=== PATIENT | female | born 1955 | race Caucasian/White ===

== ENCOUNTER → 2017-02-01 | Outpatient (CLI) | payer OTHER | LOC: FIMAGING 15:17 | PROVIDERS: ATTEND Physician Assistant Medical | DX: M50.30 Other cervical disc degeneration, unspecified cervical region (principal); M50.20 Other cervical disc displacement, unspecified cervical region; M50.822 Other cervical disc disorders at C5-C6 level; M50.823 Other cervical disc disorders at C6-C7 level; M41.86 Other forms of scoliosis, lumbar region; M51.36 Other intervertebral disc degeneration, lumbar region; M41.84 Other forms of scoliosis, thoracic region; M48.06 Spinal stenosis, lumbar region; M99.73 Connective tissue and disc stenosis of intervertebral foramina of lumbar region; M12.88 Other specific arthropathies, not elsewhere classified, other specified site ==

== ENCOUNTER → 2017-02-11 | Outpatient (CLI) | payer OTHER | LOC: FIMAGING 12:07 | PROVIDERS: ATTEND Physician Assistant Medical | DX: M54.5 Low back pain (principal); M41.86 Other forms of scoliosis, lumbar region; M41.84 Other forms of scoliosis, thoracic region ==

== ENCOUNTER → 2017-02-20 | Outpatient (CLI) | payer OTHER | LOC: FIMAGING 13:44 | PROVIDERS: ATTEND Physician Assistant | DX: Z13.820 Encounter for screening for osteoporosis (principal); M41.30 Thoracogenic scoliosis, site unspecified; Z79.890 Hormone replacement therapy | CPT/HCPCS: G0202 ==

== ENCOUNTER 2017-09-14 11:23 | Inpatient (IN) | payer OTHER ==
[2017-09-14] MEDS ORDERED: BISACODYL 5 MG EC TAB PO PRN (18:38)
[2017-09-14] MEDS ORDERED: CEPACOL LOZENGE PO PRN (18:38)
[2017-09-14] MEDS ORDERED: NON-FORMULARY NEW DRUG (Ondansetron Hcl [Zofran] 4 MG) PO PRN (18:38)
[2017-09-14] MEDS ORDERED: POLYETHYLENE GLYCOL 3350 17 GM PKT PO PRN (18:38)
[2017-09-14] MEDS ORDERED: SENNOSIDES/DOCUSATE SODIUM TAB PO PRN (18:38)
[2017-09-14] MEDS ORDERED: HYDROmorphONE/DILAUDID 2 MG TAB PO PRN (18:38)
[2017-09-14] MEDS ORDERED: NON-FORMULARY NEW DRUG (Zolpidem Tartrate [Ambien] 10 MG) PO PRN (18:38)
[2017-09-14] MEDS ORDERED: MAGNESIUM HYDROXIDE PO PRN (18:38)
[2017-09-14] MEDS ORDERED: oxyCODONE IR 5 MG TAB PO PRN (18:38)
[2017-09-14] MEDS ORDERED: BISACODYL 10 MG SUPP PR PRN (18:38)
[2017-09-14] MEDS ORDERED: fentaNYL 25 MCG PATCH TD SCH (18:45)
[2017-09-14] MEDS ORDERED: TRIAMCINOLONE 0.1% 5GM CREAM DT PRN (19:10)
--- NOTE | 2017-09-14 19:12 | PDOREHIP ---
Admission [facility] - Admission - 3 Day Assessment Period Admission Date/Day 1: 09/14/17 Day 2: 09/15/17 Day 3: 09/16/17 - Active Diagnoses Comorbidities and Co-existing Conditions at Admission: 09787. None of the Above - Skin Conditions Unhealed Pressure Ulcer (1 or more/Stage 1 or >)-Admission: 0. No
[2017-09-14] MEDS ORDERED: ONDANSETRON DISINTEGRATING 4 MG TAB PO PRN (19:16)
[2017-09-14] MEDS ORDERED: MAGNESIUM HYDROXIDE 30 ML UDCUP PO PRN (19:17)
[2017-09-14] MEDS: SIMETHICONE 80 MG TAB CHEW PO PRN (20:08)
--- NOTE | 2017-09-14 20:12 | GHP ---
[f rep st] HISTORY AND PHYSICAL POST ADMISSION PHYSICIAN EVALUATION AND REHABILITATION TREATMENT PLAN DATE OF ADMISSION: 09/14/2017 DATE OF EVALUATION: 09/14/2017 TIME OF EVALUATION: 1755 REFERRING FACILITY: [facility]. REFERRING PHYSICIAN: Dinesh Garcia MD IMPAIRMENT GROUP: [id number] DATE OF ONSET: 09/06/2017 CONSULTING PHYSICIANS: She was also managed by the Hospitalist Service. REHABILITATION DIAGNOSIS: Debility, status post extensive thoracic and spinal surgery to correct scoliosis. ETIOLOGIC DIAGNOSIS: Other nontraumatic spinal cord dysfunction. DATE OF SURGERY: 09/06/2017 HISTORY OF PRESENT ILLNESS: This patient had severe scoliosis with chronic pain. She had surgery on 09/06/2017 to correct the scoliosis and relieve the pain. She had an L1-5 and T10-12 XLIF interbody spinal fusion with a right flank approach. She came through the surgery well and no longer has the left lower back pain that had been so bothersome to her prior to the surgery. She does have pain at the surgical site over her spine. She had some issues with pain control and understands that weaning off opiates will be a long-term issue. She otherwise is without any acute complaints at present. STUDIES AND LABS IN THE HOSPITAL FROM THE DAY AFTER SURGERY: Basic metabolic profile was within normal limits but for a reduced BUN at 6 and a slightly low calcium at 8.2. A CBC revealed a normal white count. She had anemia with a hemoglobin of 9.9 and hematocrit of 30.4. She had an elevated RDW. Platelet count was normal. I do not have any imaging that was done after her surgery. There was a chest x-ray done that showed a widened mediastinum on the day of hospital admission. PRECAUTIONS: She is a fall risk. She has orthopedic precautions for the lumbar and thoracic spine. ACTIVE COMORBIDITIES: She has the tier 3 comorbidity of morbid obesity. She otherwise has no active tier 1, tier 2 or tier 3 comorbidities. PAST MEDICAL HISTORY: 1. Chronic pain syndrome. 2. Thoracic scoliosis. 3. Anxiety. 4. Depression. 5. Squamous cell carcinoma on the back. PAST SURGICAL HISTORY: She has had bladder suspensions in 2002 and 2010, a total abdominal hysterectomy in 1999, and a face lift in 2014. PRE-HOSPITAL MEDICATIONS: 1. Fentanyl transdermal 25 mcg/hour q.72 hours. 2. Oxycodone 10 mg p.o. q.4 hours p.r.n. 3. Trazodone 150 mg p.o. q.h.s. 4. Duloxetine 60 mg p.o. q.h.s. 5. Spironolactone 100 mg p.o. daily, which she has stated was for her complexion. 6. Ranitidine 150 mg p.o. b.i.d. 7. Celecoxib 200 mg p.o. b.i.d. 8. Lidocaine patch topical daily. 9. Zolpidem 10 mg p.o. q.h.s. p.r.n. insomnia. 10. Alprazolam 0.5 mg p.o. q.8 hours p.r.n. anxiety. 11. Cyclobenzaprine 10 mg p.o. b.i.d. p.r.n. muscle spasms. ADMISSION MEDICATIONS: I do not have a list at present. ALLERGIES: Listed to cephalexin, doxycycline (which causes vomiting) and morphine. SOCIAL HISTORY: She is . She lives with her . She is a nonsmoker. She uses occasional alcohol. FAMILY HISTORY: Her father had multiple sclerosis and prostate cancer. Her mother is alive and well at 86 years old. REVIEW OF SYSTEMS: She reports approximately 30 pounds weight gain during her hospitalization, which she thinks may be fluid overload. She has back pain and reports that she is due for a change of the fentanyl patch. She no longer has the left lower back pain. She feels that her abdomen is quite distended. She does not have constipation nor does she have diarrhea, nausea or vomiting. She denies dysuria or urinary frequency. She denies chest pain or palpitations. She denies cough or dyspnea though she has noted that she has a low oxygen saturation when she is first awakened in the morning. She does not snore. She denies joint pain or swelling. She denies skin rash or skin breakdown. Her reports that the intention of the surgeon was to leave faisal in place for 3-4 weeks. She is in good spirits. Otherwise, a 10-point review of systems is negative. PHYSICAL EXAMINATION: VITAL SIGNS: Blood pressure is 125/91, heart rate is 94 , respiratory rate is 16, oxygen saturation is 94% on room air, temperature is 36.4 degrees centigrade. Her weight is 99.4 kg for a body mass index of 37.6. GENERAL: This is an obese woman in bed, wearing pajamas, cooperative and in no acute distress. HEENT: Extraocular movements are intact. Pupils are equal, round, and reactive to light. Mucous membranes are moist. Dentition is in good condition. She has an uncrowded airway, Mallampati class II. NECK: Supple. HEART: There is a regular rate and rhythm with no murmurs, rubs, or gallops. LUNGS: There are a few bibasilar rales. There are no rhonchi or wheezes. There is normal air movement. ABDOMEN: Soft. Mildly tender diffusely. Distended with hypoactive bowel sounds. There is no hepatosplenomegaly. EXTREMITIES: There is no cyanosis or clubbing. There is 2 to 3+ edema bilaterally to the lower extremities. Radial pulses are 2+ bilaterally. Dorsalis pedis pulses are trace bilaterally. NEUROLOGIC: She is alert and oriented x3. Cranial nerves 2-12 are grossly intact. There is no focal weakness. Sensation is intact to light touch. SKIN: Her surgical incisions are covered with bandages, which were just changed today and were not examined further. There are no decubitus ulcers. CURRENT LEVEL OF FUNCTION: Per the preadmission screen: Regarding diet, feeding and swallowing, she was on a regular diet and required set up. Grooming required set up. For bathing, she needed assistance. For dressing the upper extremities, she needed minimal assistance. For the lower extremities , she needed maximal assistance and she needed maximal assistance to don the back brace. For toileting, she needed assistance. For bed mobility, she was able to do a log-roll with moderate assistance of 2. For transfers, she did sit to stand with minimal assist using her front-wheeled walker. Her endurance was poor. She ambulated 50 feet with contact guard assist. Communication and cognition were noted to be normal. IMPRESSION: This is a 62-year-old woman who had a history of chronic pain due to scoliosis and has had definitive surgery with a T10-12 XLIF and L1-L5 fusion. She has come through the surgery well and has had relief of the pain due to the scoliosis. She continues to have pain at the surgical site. She has a long-term history of opiate dependence for her chronic pain syndrome and will need a gradual opiate taper once her postsurgical pain heals. She has edema which is likely due to fluid overload; though there was a widened mediastinum seen on chest x-ray she reports normal aortic ultrasound and a normal heart scan done per her primary care physician, Dr. Castillo. Her goal is to complete a rehabilitation stay and then go home with her , home health care and any other needs as indicated during her rehabilitation stay. For a safe discharge, it is expected that she will achieve moderate independence with mobility, activities of daily living, medication management and pain management. She will have discharge planning to return home with therapies and any other necessary services or durable medical equipment. She will have therapy with physical therapy and occupational therapy for 90 minutes per day for each discipline on 5-7 days of the week. Her expected duration of stay is 10-12 days. It is anticipated that upon discharge, she will continue to benefit from home health services including occupational therapy. PLAN: 1. Debility, status post extensive lumbar surgery. She had an L1-L5 and T10- 12 XLIF interbody spinal fusion with a right flank approach. PT and OT to optimize mobility and activities of daily living toward home at the modified independent level. 2. Pain management. Continue fentanyl patch, oxycodone and pregabalin as ordered. Will simplify pain regimen and not continue oxycodone/acetaminophen, ydrocodone/acetaminophen, or hydromorphone. Medications will be adjusted to achieve adequate pain control for sleep and participation in therapies. It is hoped that as she heals from the surgery, opiates can be tapered and this will be begun if possible during her rehabilitation stay. 3. Lower extremity edema and possible fluid overload. Will resume home dose of spinal act on at 100 mg q.day. Will get daily weights. Will also check a BMP regarding renal function and electrolytes as well as a BNP to rule out any heart failure with laboratory studies in the morning. 4. Postoperative anemia. We will check a CBC in the morning as well as an iron panel. 5. Anxiety and depression. Continue duloxetine as well as alprazolam. Caution regarding excess sedation with benzodiazepine plus opiates. However, she has been on this combination of medications for quite some time. 6. Wound care. We will contact Dr. Garcia's office during work hours to determine duration of faisal and wound care orders. 7. Prophylaxis. She is at elevated risk for deep venous thrombosis. She has been treated with enoxaparin in the hospital and this will be continued. She will be mobilized as rapidly as possible and enoxaparin will be discontinued when she has adequate mobility. She was previously on ranitidine. While she is on enoxaparin, she will also be treated with pantoprazole for GI prophylaxis. FOLLOWUP: We will contact Dr. Garcia's office during work hours to determine when Dr. Garcia wants to see the patient again. Follow up with primary care provider Dr. Castillo after discharge. /[id number]/MODL MTDD
[2017-09-14] MEDS: PREGABALIN 75 MG CAP PO SCH (20:42)
[2017-09-14] MEDS: ENOXAPARIN 40 MG/0.4 ML SYR SC SCH (20:43)
[2017-09-14] MEDS: ALPRAZolam 0.5 MG TAB PO PRN (20:43)
[2017-09-14] MEDS: DULoxetine 60 MG CAP PO SCH (20:43)
[2017-09-14] MEDS: ZOLPIDEM TARTRATE 5 MG TAB PO PRN (20:49)
[2017-09-14] MEDS ORDERED: ENOXAPARIN 30 MG/0.3 ML SYR SC SCH ×2 (21:00)
[2017-09-14] MEDS: oxyCODONE IR 5 MG TAB PO PRN (22:03)
[2017-09-15] MEDS ORDERED: DEXAMETHASONE 0.5 MG PO SCH
[2017-09-15] MEDS: METHOCARBAMOL 500 MG TAB PO SCH ×3 (01:05→11:47)
[2017-09-15] MEDS: oxyCODONE IR 5 MG TAB PO PRN ×6 (02:21→18:53)
[2017-09-15] MEDS: ALPRAZolam 0.5 MG TAB PO PRN ×2 (03:25→18:00)
[2017-09-15] MEDS ORDERED: fentaNYL 25 MCG PATCH TD SCH (07:00)
[2017-09-15] MEDS: PANTOPRAZOLE SODIUM 40 MG TAB PO SCH (07:57)
[2017-09-15] MEDS: SPIRONOLACTONE 100 MG TAB PO SCH (07:57)
[2017-09-15] MEDS: PREGABALIN 75 MG CAP PO SCH ×3 (07:57→23:10)
[2017-09-15] MEDS ORDERED: FUROSEMIDE 20 MG TAB PO ONE (08:00)
[2017-09-15 08:11] LABS: PLATELET COUNT 176 10^3/uL (150-400)
--- NOTE | 2017-09-15 09:35 | SOAPPROG ---
SOAP Progress Note Assessment/Plan: Assessment: * Debility, status post extensive lumbar surgery. She had an L1-L5 and T10-12 XLIF interbody spinal fusion with a right flank approach. * PT and OT to optimize mobility and activities of daily living toward home at the modified independent level. * Pain management. * Increased pain overnight and poor sleep. Weightbearing/ambulation does not increase pain. * D/C methocarbamol as it likely adds little if anything. * Increase OxyCR at bedtime to 40 mg starting 09/15/2017. D/C AM dose. * Increase OxyIR range to 5 - 20 mg Q 3 hr PRN starting 09/15/2017. * May have less pain if she can sleep better. * Consider discontinuation of pregabalin If pain is improved. * Lower extremity edema and possible fluid overload. * Resumed home dose of spironolactone at 100 mg q.day starting 09/15/2017. * BMP wnl. BNP 5170 on 09/15/2017, c/w CHF; also with JVD; but no dyspnea or hypoxia. * Will get daily weights. Repeat labs 09/20/2017 * Postoperative anemia. * Iron-deficient on labs 09/15/2107. Started iron replacement. * Recheck 09/15/2017. * Insomnia. Resume trazodone; chose lower dose of 100 mg QHS; was on 150 mg QHS prior to surgery to be cautious re oversedation with opiates and benzodiazepine also prescribed. * Anxiety and depression. Continue duloxetine as well as alprazolam. Caution regarding excess sedation with benzodiazepine plus opiates. However, she has been on this combination of medications for quite some time. * Wound care. * Change dressings p.r.n.. Okay to shower. * Juanita to be removed 2 weeks post hospital discharge, 09/28/2017. * Prophylaxis. She is at elevated risk for deep venous thrombosis. Continue enoxaparin; increased dose from 30 mg to 40 mg due to patient's weight. Will discontinue when mobility improves. She was previously on ranitidine. While she is on enoxaparin, she will also be treated with pantoprazole for GI prophylaxis. FOLLOWUP: Followup with Dr.Anant Garcia 1 month from hospital discharge or approximately 10/12/2017. His office phone is [phone]. Follow up with primary care provider Dr. Castillo after discharge. 09/15/17 13:02 Subjective: Was up multiple times through the night with pain. She describes the pain as an aching pain in her anterior thighs. It does not bother her with weight- bearing though her left thigh hurts if she flexes her hip while seated. The thighs are not tender. Her left low back pain which was prominent prior to the surgery has resolved. She does not feel any effect of the long-acting oxycodone. She is unclear if there is any benefit from the methocarbamol which she started approximately 2 weeks prior to surgery. No constipation, no dyspnea. Objective: Vital Signs Temp Pulse Resp BP Pulse Ox 36.9 C 100 18 124/86 H 94 09/14/17 20:00 09/14/17 20:00 09/14/17 20:00 09/14/17 20:00 09/14/17 20:00 Laboratory Results 09/15/17 06:00 09/15/17 06:00 09/14/17 09/15/17 09/16/17 05:59 05:59 05:59 Intake Total 800 Output Total 500 Balance 300 Physical Exam - Physical Exam General Appearance: WD/WN, alert, no apparent distress Respiratory: normal breath sounds, No crackles, No rhonchi, No wheezing Cardiac/Chest: regular rate, rhythm, edema (2 to 3+ bilateral lower extremity pretibial.), JVD (To angle of jaw while seated upright.), No diastolic murmur, No systolic murmur Skin: normal color, warm/dry Neuro/Psych: no motor/sensory deficits, alert, normal mood/affect, oriented x 3 ICD10 Worksheet Patient Problems: Problems Problem Status Onset Debility Acute
[2017-09-15] MEDS: FERROUS SULFATE 325 MG TAB PO SCH (11:47)
[2017-09-15] MEDS: SIMETHICONE 80 MG TAB CHEW PO PRN (19:58)
[2017-09-15] MEDS: ENOXAPARIN 40 MG/0.4 ML SYR SC SCH (20:00)
[2017-09-15] MEDS: DULoxetine 60 MG CAP PO SCH (20:00)
[2017-09-15] MEDS: traZODone 100 MG TAB PO SCH (20:00)
[2017-09-15] MEDS: ZOLPIDEM TARTRATE 5 MG TAB PO PRN (21:00)
[2017-09-16] MEDS: oxyCODONE IR 5 MG TAB PO PRN ×7 (00:19→19:31)
[2017-09-16 06:58] VITALS: RESP 16
[2017-09-16] MEDS: FERROUS SULFATE 325 MG TAB PO SCH (08:14)
[2017-09-16] MEDS: SPIRONOLACTONE 100 MG TAB PO SCH (08:14)
[2017-09-16] MEDS: PANTOPRAZOLE SODIUM 40 MG TAB PO SCH (08:14)
[2017-09-16] MEDS: PREGABALIN 75 MG CAP PO SCH ×3 (08:21→22:32)
--- NOTE | 2017-09-16 12:58 | SOAPPROG ---
SOAP Progress Note Assessment/Plan: Assessment: * Debility, status post extensive lumbar surgery. She had an L1-L5 and T10-12 XLIF interbody spinal fusion with a right flank approach. * PT and OT to optimize mobility and activities of daily living toward discharge home at the modified independent level. * Pain management. Complicated with history of chronic pain and long-term opiate dependence. * Increased OxyCR at bedtime to 40 mg starting 09/15/2017. D/C AM dose. * Increased OxyIR range to 5 - 20 mg Q 3 hr PRN starting 09/15/2017. * Resume methocarbamol at her request, 09/16/2017. * Consider discontinuation of pregabalin if pain is improved. * Lower extremity edema and possible fluid overload. * Resumed home dose of spironolactone at 100 mg q.day starting 09/15/2017. Consider adding furosemide if she does not diurese. * BMP wnl. BNP 5170 on 09/15/2017, c/w CHF; also with JVD; but no dyspnea or hypoxia. * Will get daily weights. Down 0.5 kg as of 09/16/2017. Repeat labs 09/20/2017 * Postoperative anemia. * Iron-deficient on labs 09/15/2107. Started iron replacement 09/15/2017. * Recheck . * Insomnia. Resume trazodone; chose lower dose of 100 mg QHS; was on 150 mg QHS prior to surgery to be cautious re oversedation with opiates and benzodiazepine also prescribed. * Slept well overnight 09/15/2017 to 09/14/2017. * Using zolpidem p.r.n. along with scheduled trazodone. * Anxiety and depression. Continue duloxetine as well as alprazolam. Caution regarding excess sedation with benzodiazepine plus opiates. However, she has been on this combination of medications for quite some time. * Wound care. * Change dressings p.r.n.. Okay to shower. * Juanita to be removed 2 weeks post hospital discharge, 09/28/2017. * Prophylaxis. She is at elevated risk for deep venous thrombosis. Continue enoxaparin; increased dose from 30 mg to 40 mg due to patient's weight. Will discontinue when mobility improves. She was previously on ranitidine. While she is on enoxaparin, she will also be treated with pantoprazole for GI prophylaxis. FOLLOWUP: Followup with Dr.Anant Garcia 1 month from hospital discharge or approximately 10/12/2017. His office phone is [phone]. Follow up with primary care provider Dr. Castillo after discharge. 09/16/17 15:40 Subjective: Complains of muscle tightness in her back and would like methocarbamol restarted. Slept well; was awake only to urinate however also took oxycodone 15 mg after approximately 5 hr and then another 4 hr. Otherwise without complaints. Denies fevers, chills, cough, dyspnea. Objective: Vital Signs Temp Pulse Resp BP Pulse Ox 37.2 C 101 H 16 133/89 H 90 L 09/16/17 06:55 09/16/17 06:55 09/16/17 06:55 09/16/17 06:55 09/16/17 08:00 Laboratory Results 09/15/17 06:00 09/15/17 06:00 09/15/17 09/16/17 09/17/17 05:59 05:59 05:59 Intake Total 800 600 150 Output Total 500 Balance 300 600 150 Physical Exam - Physical Exam General Appearance: WD/WN, alert, no apparent distress Respiratory: No respiratory distress, No accessory muscle use Cardiac/Chest: edema (2 to 3+ bilateral lower extremities pretibial) Skin: normal color, warm/dry, other (Mild erytehma over R lower abdomen, NT, no induration.) Extremities: other (Tender R lateral thigh) Neuro/Psych: no motor/sensory deficits, alert, normal mood/affect, oriented x 3 ICD10 Worksheet Patient Problems: Problems Problem Status Onset Debility Acute
[2017-09-16] MEDS: METHOCARBAMOL 500 MG TAB PO PRN (13:04)
[2017-09-16] MEDS: SIMETHICONE 80 MG TAB CHEW PO PRN (14:09)
[2017-09-16] MEDS ORDERED: oxyCODONE IR 5 MG TAB PO ONE (15:02)
[2017-09-16] MEDS: FUROSEMIDE 20 MG TAB PO SCH (15:19)
[2017-09-16] MEDS: SENNOSIDES/DOCUSATE SODIUM TAB PO SCH (20:30)
[2017-09-16] MEDS: DULoxetine 60 MG CAP PO SCH (20:32)
[2017-09-16] MEDS: ENOXAPARIN 40 MG/0.4 ML SYR SC SCH (20:32)
[2017-09-16] MEDS: ZOLPIDEM TARTRATE 5 MG TAB PO PRN (21:09)
[2017-09-16] MEDS: traZODone 100 MG TAB PO SCH (21:10)
[2017-09-17] MEDS: oxyCODONE IR 5 MG TAB PO PRN ×6 (01:13→16:45)
[2017-09-17] MEDS: METHOCARBAMOL 500 MG TAB PO PRN (06:29)
[2017-09-17] MEDS: PANTOPRAZOLE SODIUM 40 MG TAB PO SCH (08:57)
[2017-09-17] MEDS: FERROUS SULFATE 325 MG TAB PO SCH (08:57)
[2017-09-17] MEDS: PREGABALIN 75 MG CAP PO SCH ×2 (08:57→16:46)
[2017-09-17] MEDS: FUROSEMIDE 20 MG TAB PO SCH (08:57)
[2017-09-17] MEDS: SPIRONOLACTONE 100 MG TAB PO SCH (08:58)
[2017-09-17] MEDS: SENNOSIDES/DOCUSATE SODIUM TAB PO SCH (08:58)
--- NOTE | 2017-09-17 09:46 | SOAPPROG ---
SOAP Progress Note Assessment/Plan: Assessment: * Debility, status post extensive lumbar surgery. She had an L1-L5 and T10-12 XLIF interbody spinal fusion with a right flank approach. * PT and OT to optimize mobility and activities of daily living toward discharge home at the modified independent level. * Pain management. Complicated with history of chronic pain and long-term opiate dependence. * Increased OxyCR at bedtime to 40 mg starting 09/15/2017. D/C'd AM dose. * Increased OxyIR range to 5 - 20 mg Q 3 hr PRN starting 09/15/2017. * Resume methocarbamol at her request, 09/16/2017. * Consider discontinuation of pregabalin if pain is improved. * Pulmonary embolus. * Diagnosed today 09/17/[address] angiogram. * Likely explains edema and positive BNP indicating myocardial strain. * Increased enoxaparin to 100 mg subcutaneous q.day * Will follow up with primary care provider on 10/18/2017 regarding initiating oral anticoagulation. * Lower extremity edema and possible fluid overload. * Resumed home dose of spironolactone at 100 mg q.day starting 09/15/2017. Added furosemide 09/16/2017. * BMP wnl. BNP 5170 on 09/15/2017, c/w CHF; also with JVD; but no dyspnea or hypoxia. * Will get daily weights. Down 0.5 kg as of 09/16/2017. Repeat labs 09/20/2017 * Postoperative anemia. * Iron-deficient on labs 09/15/2107. Started iron replacement 09/15/2017. * Recheck 10/13/2017. * Insomnia. Resume trazodone; chose lower dose of 100 mg QHS; was on 150 mg QHS prior to surgery to be cautious re oversedation with opiates and benzodiazepine also prescribed. * Sleeping well. * Using zolpidem p.r.n. along with scheduled trazodone. * Anxiety and depression. Continue duloxetine as well as alprazolam. Caution regarding excess sedation with benzodiazepine plus opiates. However, she has been on this combination of medications for quite some time. * Wound care. * Change dressings p.r.n.. Okay to shower. * Juanita to be removed 2 weeks post hospital discharge, 09/28/2017. * Prophylaxis. She is at elevated risk for deep venous thrombosis. Continue enoxaparin; increased dose from 30 mg to 40 mg due to patient's weight. Will discontinue when mobility improves. She was previously on ranitidine. While she is on enoxaparin, she will also be treated with pantoprazole for GI prophylaxis. Attended staffing, 15 min. Discussed with case management, dietitian, nursing, PT, OT. She strongly wishes to be discharged home today. She appears to have sufficient mobility, independence with ADLs, and safety. Discharge home today with . FOLLOWUP: Followup with Dr.Anant Garcia 1 month from hospital discharge or approximately 10/12/2017. His office phone is [phone]. Follow up with primary care provider Dr. Castillo after discharge. 09/17/17 17:58 Subjective: REPORTS INCREASED URINATION. WAS UP TO URINATE AT NIGHT. PAIN IS ADEQUATELY CONTROLLED. NO COUGH OR DYSPNEA BUT REPORTS THAT SHE USE SOME OXYGEN OVERNIGHT. Objective: Vital Signs Temp Pulse Resp BP Pulse Ox 38.2 C 100 16 108/67 93 09/16/17 18:26 09/17/17 08:00 09/16/17 18:26 09/17/17 08:00 09/17/17 08:00 Laboratory Results 09/15/17 06:00 09/15/17 06:00 09/16/17 09/17/17 09/18/17 05:59 05:59 05:59 Intake Total 600 1990 Output Total 1400 500 Balance 600 590 -500 - Time Spent With Patient Time Spent With Patient: Greater than 35 min floor time today, including more than 50% of time in coordination of care during staffing meeting, and counseling patient. Physical Exam - Physical Exam General Appearance: WD/WN, alert, no apparent distress, obese Respiratory: normal breath sounds, No crackles, No rhonchi, No wheezing Cardiac/Chest: regular rate, rhythm, edema (2+ bilateral pretibial), tachycardia , No diastolic murmur, No systolic murmur Skin: normal color, warm/dry Neuro/Psych: no motor/sensory deficits, alert, normal mood/affect, oriented x 3 ICD10 Worksheet Patient Problems: Problems Problem Status Onset Debility Acute
[2017-09-17] MEDS ORDERED: IOPAMIDOL (ISOVUE 370) 100 ML BTL IV ONE (14:41)
[2017-09-17] MEDS ORDERED: ENOXAPARIN 60 MG/0.6 ML SYR SC ONE (15:37)
[2017-09-17 18:43] VITALS: BP 112/76; PULSE 110; TEMP 97.6; O2SAT 86
[2017-09-17] MEDS ORDERED: ENOXAPARIN 100 MG/ML SYR SC SCH (21:00)
--- NOTE | 2017-09-18 04:08 | GDS ---
[f rep st] DISCHARGE SUMMARY ADMITTING DIAGNOSIS: Debility, status post thoracic to pelvic spinal fusion for scoliosis. DISCHARGE DIAGNOSIS: Debility, status post thoracic to pelvic spinal fusion for scoliosis. OTHER DIAGNOSES: 1. Pulmonary embolus. 2. Congestive heart failure. 3. Chronic pain. 4. Chronic opiate dependence. CONSULTATIONS: There were none. PROCEDURES: She had a CT angiogram of the chest. COMPLICATIONS: Pulmonary embolus. HISTORY AND HOSPITAL COURSE: This patient came to inpatient rehabilitation from [facility] where she had an extensive and definitive spinal surgery with fusion from T10 to pelvis for scoliosis, which had caused her chronic left lower back pain. The left lower back pain resolved , but she continued to have right lateral thigh pain and continued to use large quantities of opiates. She participated in therapies and had rapid improvement. On the day of discharge, her functional independence measure scored 98, which is consistent with independent level of function. She had ambulated 150 feet with a front- wheeled walker and supervision. She is at supervision level for bed mobility. She negotiated 6 stairs with 1 rail with supervision. For dressing, she required set up to standby assist. She required cues to maintain spinal precautions. Upon admission, she was noted to have considerable lower extremity edema, and she reported that her weight was up approximately 30 pounds from prior to her surgery. Initially, this was attributed to fluid administration during a major surgery. However, on the day of discharge, it was noted that she was tachycardic the evening before and in the morning with heart rates of 100-110. Additionally, she became hypoxic with oxygen saturation declining to 83% on the evening before discharge. She was placed on 2 L overnight and maintained at 92% , and the next day she was at 93% saturation on room air. She was sent for a chest CT angiogram on suspicion of possible pulmonary embolus, and indeed she had a pulmonary embolus. She had been maintained on a prophylactic dose of enoxaparin at 40 mg q.h.s., and this was increased to 100 mg b.i.d. treatment dose. Given that she is leaving today, oral anticoagulation was not initiated. She has followup planned with her primary care provider, Dr. Castillo, on 09/20/2017, and oral anticoagulation can be initiated at that time. LABORATORY DATA: Other labs and studies during her stay: she had anemia with a hemoglobin of 9.2 and a hematocrit of 27.1. She was found to be iron deficient and was begun on iron replacement. Renal function and electrolytes were overall within normal limits on 09/15/2017, though the potassium was slightly low at 3.4. Liver function tests were overall within normal limits but for an elevated ALT and AST at 91 and 72. BNP was markedly elevated at 5170. PHYSICAL EXAMINATION: GENERAL: On the day of discharge, this is a well- nourished, well-developed, obese woman sitting up in bed, cooperative, and in no acute distress. HEART: There is a regular rate and rhythm with no murmurs, rubs, or gallops. She does not have JVD. She has 2+ edema bilaterally pretibially. LUNGS: Clear to auscultation bilaterally. ABDOMEN: Soft, nontender, nondistended with normoactive bowel sounds. NEUROLOGIC: She is alert and oriented x3. Cranial nerves 2-12 are grossly intact. There is no focal weakness. Sensation is intact to light touch, and gait with a front- wheeled walker is overall within normal limits. DISCHARGE PLAN: Condition upon discharge is good. ACTIVITY: Ad joycelyn but no driving and lumbar spinal restrictions with no bending , lifting, or twisting. DIET: Regular. FOLLOWUP: Date of next appointment: She will see primary care provider, Dr. Castillo, on 09/20/2017, and she will see surgeon, Dr. Greyson Garcia, approximately 1 month after surgery. MEDICATIONS AT DISCHARGE: 1. Alprazolam 0.5 mg p.o. b.i.d. p.r.n. 2. Bisacodyl 10 mg p.r. q.12 hours p.r.n. 3. Duloxetine 60 mg p.o. q.h.s. 4. Enoxaparin 100 mg subcutaneous b.i.d. 5. Fentanyl patch 25 mcg q.72 hours. 6. Ferrous sulfate 325 mg p.o. q. day through 10/12/2017. 7. Furosemide 20 mg p.o. q. day. 8. Methocarbamol 1000 mg p.o. q.6 hours p.r.n. 9. Oxycodone continuous release 40 mg p.o. q.h.s. 10. Oxycodone 5-20 mg p.o. q.3 hours p.r.n. 11. Pantoprazole 40 mg p.o. q. day. 12. Polyethylene glycol 17 g p.o. b.i.d. p.r.n. 13. Pregabalin 75 mg p.o. t.i.d. 14. Senna/docusate 1-2 tabs p.o. b.i.d. 15. Spironolactone 100 mg p.o. q. day. 16. Trazodone 100 mg p.o. q.h.s. 17. Zolpidem 10 mg p.o. q.h.s. p.r.n. ISSUES TO BE ADDRESSED AT FOLLOWUP: 1. Anticoagulation. To follow up with primary care provider regarding choice of oral anticoagulants for pulmonary embolus. 2. Functional status. She will continue to have PT and OT at home and can follow up again with primary care regarding her progress. 3. Status post major spinal surgery. Followup with Dr. Garcia on his schedule. 4. Chronic opiate dependence. Presumably postsurgically her pain will be considerably improved. Consider referral to bobbin painter to manage opiate wean versus followup with primary care provider. 5. Edema and labs consistent with congestive heart failure. She has repeat labs scheduled for 09/20/2017, and she can follow up with Dr. Castillo, primary care. 6. Iron-deficiency anemia. Continue iron sulfate replacement for 1 month and have followup. She has a repeat CBC planned for 09/20/2017, and she can follow up regarding her anemia with her primary care provider, Dr. Castillo. Copy requested to: Dr. Anna Garcia [facility] /[id number]/MODL MTDD
== END 2017-09-17 19:10 | disposition home health service (06) | DRG 559 ==
LOC: BREH 17:16
PROVIDERS: ADMIT Internal Medicine; ATTEND Internal Medicine
DX: Z47.89 Encounter for other orthopedic aftercare (principal); I26.99 Other pulmonary embolism without acute cor pulmonale; F11.20 Opioid dependence, uncomplicated; G89.29 Other chronic pain; E66.01 Morbid (severe) obesity due to excess calories; Z68.37 Body mass index [BMI] 37.0-37.9, adult; F41.8 Other specified anxiety disorders; R53.81 Other malaise; I50.9 Heart failure, unspecified; D50.9 Iron deficiency anemia, unspecified; Z98.1 Arthrodesis status
CPT/HCPCS: 97110-GO; 97110-GP; 97116-GP; 97162-GP; 97166-GO; 97530-GO; 97530-GP; 97535-GO; J1650; Q9967

== ENCOUNTER 2017-09-30 05:45 | Inpatient (IN) | payer OTHER ==
--- NOTE | 2017-09-30 05:49 | EDPHY ---
H & P Time Seen by Provider: 09/30/17 05:50 HPI/ROS: HPI CHIEF COMPLAINT: Confusion HISTORY OF PRESENT ILLNESS: Patient is a 62-year-old female, history of spinal surgery, additionally history of pulmonary embolism but not on any anticoagulation at this time, history of chronic pain with opiate dependency, CHF, presents emergency room with confusion that apparently started last night around 2:00 a.m.. She woke her up stating that she was not feeling well and seemed confused. He kept checking her oxygen level in bed stating that was in the high 80s. Around 6:00 a.m. They decided come to the emergency room for increasing confusion. Upon arrival to the emergency room it is noted the patient is tachycardic in the 130s, hypoxic to 76% on room air. She denies any shortness of breath but does appear confused. She tells me the date is 1919. She denies chest pain. However reports yesterday she did complain of some inspiratory pleuritic pain. Or pain when she took deep breaths in. She is noted to be febrile upon arrival here as well. She states she had a very good day yesterday she did see her primary care doctor for follow-up. states that she had normal vitals at that time and did well yesterday. However around 2:00 a.m. Something changed. Patient denies headache or chest pain at this time. Denies shortness of breath. States she feels fine but is confused. Past Medical History: History of pulmonary embolism, CHF, chronic pain, recent spinal surgery Past Surgical History: Recent spinal surgery Social History: Lives locally, denies drugs alcohol tobacco products. Opiate dependency Family History: Noncontributory. PCP is Dr. Nava. ROS REVIEW OF SYSTEMS: Limited due to patient's mental status Exam Constitutional confused, triage nursing summary reviewed, vital signs reviewed , awake/alert. Eyes normal conjunctivae and sclera, EOMI, PERRLA. HENT normal inspection, atraumatic, moist mucus membranes, no epistaxis, neck supple/ no meningismus, no raccoon eyes. Respiratory clear to auscultation bilaterally, normal breath sounds, no respiratory distress, no wheezing. Cardiovascular tachycardia regular rhythm, no murmur, no edema, distal pulses normal. Gastrointestinal soft, non-tender, no rebound, no guarding, normal bowel sounds, no distension, no pulsatile mass. Genitourinary no CVA tenderness. Musculoskeletal no midline vertebral tenderness, full range of motion, no calf swelling, no tenderness of extremities, no meningismus, good pulses, neurovascularly intact. Skin pink, warm, & dry, no rash, skin atraumatic. Neurologic alert and orient times to, moves all 4 extremities equally, motor intact, sensory intact, CN II-XII intact, normal cerebellar, normal vision, normal speech. Psychiatric normal mood/affect. Heme/Lymph/Immune no lymphadenopathy. Differential Diagnosis: Includes but is not limited to in a particular order infection, sepsis, bacteremia, hypoxia causing confusion, pulmonary embolism, pneumonia, pneumothorax, CHF Medical Decision Making: Plan for this patient full hospital monitor, IV establishment blood cultures, lactic acid, EKG, supplemental oxygen, rule out acute [place], rule out pulmonary embolism. Will proceed with i-STAT creatinine CT angiogram of her chest. Chest x-ray. Check UA. Admission to the hospital. Re-evaluation: EKG interpretation by me on record in [employer] system. Impression time of EKG 6:00 a.m., sinus tachycardia rate of 134 significant T-wave abnormalities symmetrical deep inverted V1 V2 V3 V4 biphasic V5 concerning for ischemia. No ST elevation. 0550AM: Due to the patient's unstable vital signs she was immediately brought back to ER room 5 where I greeted her. Placed on a hospital monitor her initial vital signs showed a heart rate of 140s pulse ox of 76% on room air. She is placed on supplemental oxygen. IV was established. 0555: Given that she had a recent surgery and pulmonary embolism with the ongoing tachycardia hypoxia was greatly concerned she may have another pulmonary embolism. She distally is noted to be febrile. Blood cultures and lactic have been pulled. IV fluids have been started. Additionally I have given her broad-spectrum antibiotics vancomycin and Zosyn for sepsis coverage given the febrile illness tachycardia and hypoxia. Blood work is pending. I asked for an i-STAT creatinine to immediately sent her to CT angiogram of the chest given her hypoxia, tachycardia, abnormal EKG recent surgery to rule out pulmonary embolism. CT scan head without contrast called to me shows no acute abnormality CT angiogram of the chest: 0639: Patient is back from CT on full hospital monitor. Current vitals heart rate 128, blood pressure 135/82, pulse ox 94% on 5 L nasal cannula. Patient denies chest pain or shortness of breath at this time. This patient most likely need to be admitted to the ICU for profound hypoxia, tachycardia, febrile illness. Sepsis. 0707: Current vitals at this time heart rate 119, blood pressure 105/67. Pulse ox 96% [address] scan angiogram chest called to me by Dr. Naveen Beasley. Extensive pneumonia throughout both lung aadms worse on the right than left dense air bronchograms. Additionally there is a right upper lobe subsegmental PE. 0730: Broad-spectrum antibiotics been given IV vancomycin IV Zosyn. Lovenox 1 milligram/kilogram. Subsegmental PE in the right upper lobe. Patient admitted to the ICU under the care Dr. Teran. She will plan on seeing the patient. 0730: At this time this patient is hemodynamically stable heart rate 115, blood pressure 106/67, pulse ox 95% 5 L nasal cannula. Source: Patient - Personal History Tetanus Vaccine Date: 2002 - Medical/Surgical History Hx Asthma: No Hx Chronic Respiratory Disease: No Hx Diabetes: No Hx Cardiac Disease: No Hx Renal Disease: No Hx Cirrhosis: No Hx Alcoholism: No Hx HIV/AIDS: No Hx Splenectomy or Spleen Trauma: No Other PMH: hystorecotmy, bladded lift x2 - Social History Smoking Status: Never smoked Constitutional: Initial Vital Signs Temperature (C) 39.3 C H 09/30/17 05:50 Heart Rate 137 H 09/30/17 05:50 Respiratory Rate 20 09/30/17 05:50 Blood Pressure 129/82 H 09/30/17 05:50 O2 Sat (%) 80 L 09/30/17 05:50 O2 Delivery Mode Nasal Cannula O2 (L/minute) 5 Allergies/Adverse Reactions: cephalexin monohydrate [From Keflex] Allergy (Mild, Verified 09/30/17 05:45) Other-Enter Comments doxycycline [Doxycycline] Allergy (Mild, Verified 09/30/17 05:45) Vomiting morphine Allergy (Unknown, Verified 09/30/17 05:45) ENVIRONMENTAL Allergy (Mild, Uncoded 09/30/17 05:45) NASAL CONGESTION Home Medications: Medication Instructions Recorded ALPRAZolam [Xanax 0.5 MG (*)] 1 tab PO Q8 PRN #14 tab 09/17/17 DULoxetine [Cymbalta 60 MG (*)] 1 cap PO HS #30 cap 09/17/17 Enoxaparin [Lovenox 100 MG (*)] 100 mg SC BID #14 syr 09/17/17 Ferrous Sulfate [Ferrous Sulf 325 325 mg PO DAILY #26 tab 09/17/17 MG (*)] Furosemide [Lasix 20 MG (*)] 20 mg PO DAILY #60 tab 09/17/17 Methocarbamol [Robaxin 500 mg (*)] 1,000 mg PO Q6 #30 tab 09/17/17 Pantoprazole Sodium [Protonix 40mg 40 mg PO DAILY #30 tab 09/17/17 (*)] Polyethylene Glycol 3350 [Miralax 17 gm PO BID PRN pkt 09/17/17 17 gm (*)] Pregabalin [Lyrica 75mg (*)] 75 mg PO TID #90 cap 09/17/17 Sennosides/Docusate Sodium 1 - 2 tab PO BID tab 09/17/17 [Senokot-S] Simethicone [Mylicon] 80 mg PO Q4 PRN tab.chew 09/17/17 Spironolactone [Aldactone] 100 mg PO DAILY #30 tab 09/17/17 Zolpidem Tartrate [Ambien] 10 mg PO HS PRN #14 tablet 09/17/17 fentaNYL [Duragesic 25 MCG Patch 25 mcg TD Q72H #10 patch 09/17/17 (*)] oxyCODONE CR [Oxycontin] 40 mg PO HS #14 tab 09/17/17 oxyCODONE IR [Oxycodone Ir (*)] 5 - 20 mg PO Q3 PRN #90 tab 09/17/17 traZODone [traZODONE 100MG (*)] 100 mg PO HS #30 tab 09/17/17 Medical Decision Making - Data Points Laboratory Results: Laboratory Results 09/30/17 06:00 09/30/17 06:00 09/30/17 09/30/17 09/30/17 06:50 06:05 06:00 WBC RBC Hgb POC Hgb 11.6 gm/dL L gm/dL (12.6-16.3) Hct POC Hct 34 % L % (38-47) MCV MCH MCHC RDW Plt Count MPV Neut % (Auto) Lymph % (Auto) [facility] % (Auto) Eos % (Auto) Baso % (Auto) Nucleat RBC Rel Count Absolute Neuts (auto) Absolute Lymphs (auto) Absolute Monos (auto) Absolute Eos (auto) Absolute Basos (auto) Absolute Nucleated RBC Immature Gran % Immature Gran # PT INR APTT VBG Lactic Acid 1.4 mmol/L mmol/L (0.7-2.1) POC Sodium 133 mEq/L L mEq/L (135-145) Sodium POC Potassium 4.4 mEq/L mEq/L (3.3-5.0) Potassium POC Chloride 98 mEq/L mEq/L (97-110) Chloride Carbon Dioxide Anion Gap POC BUN 9 mg/dL mg/dL (7-23) BUN Creatinine POC Creatinine 0.8 mg/dL mg/dL (0.6-1.0) Estimated GFR Glucose POC Glucose 120 mg/dL H mg/dL (70-100) Calcium Magnesium Total Bilirubin Conjugated Bilirubin Unconjugated Bilirubin AST ALT Alkaline Phosphatase Creatine Kinase CK-MB (CK-2) Fraction CK-MB (CK-2) % Creatine Kinase Interp Troponin I NT-Pro-B Natriuret Pep Total Protein Albumin Urine Color YELLOW Urine Appearance CLEAR Urine pH 5.0 (5.0-7.5) Ur Specific Rochelle 1.012 (1.002-1.030) Urine Protein NEGATIVE (NEGATIVE) Urine Ketones NEGATIVE (NEGATIVE) Urine Blood NEGATIVE (NEGATIVE) Urine Nitrate NEGATIVE (NEGATIVE) Urine Bilirubin NEGATIVE (NEGATIVE) Urine Urobilinogen NEGATIVE EU EU (0.2-1.0) Ur Leukocyte Esterase NEGATIVE (NEGATIVE) Urine Glucose NEGATIVE (NEGATIVE) 09/30/17 09/30/17 09/30/17 06:00 06:00 06:00 WBC 11.27 10^3/uL H 10^3/uL (3.80-9.50) RBC 3.83 10^6/uL L 10^6/uL (4.18-5.33) Hgb 11.2 g/dL L g/dL (12.6-16.3) POC Hgb Hct 34.1 % L % (38.0-47.0) POC Hct MCV 89.0 fL fL (81.5-99.8) MCH 29.2 pg pg (27.9-34.1) MCHC 32.8 g/dL g/dL (32.4-36.7) RDW 14.6 % % (11.5-15.2) Plt Count 585 10^3/uL H 10^3/uL (150-400) MPV 9.0 fL fL (8.7-11.7) Neut % (Auto) 86.7 % H % (39.3-74.2) Lymph % (Auto) 5.9 % L % (15.0-45.0) [facility] % (Auto) 6.2 % % (4.5-13.0) Eos % (Auto) 0.4 % L % (0.6-7.6) Baso % (Auto) 0.4 % % (0.3-1.7) Nucleat RBC Rel Count 0.0 % % (0.0-0.2) Absolute Neuts (auto) 9.77 10^3/uL H 10^3/uL (1.70-6.50) Absolute Lymphs (auto) 0.66 10^3/uL L 10^3/uL (1.00-3.00) Absolute Monos (auto) 0.70 10^3/uL 10^3/uL (0.30-0.80) Absolute Eos (auto) 0.05 10^3/uL 10^3/uL (0.03-0.40) Absolute Basos (auto) 0.05 10^3/uL 10^3/uL (0.02-0.10) Absolute Nucleated RBC 0.00 10^3/uL 10^3/uL (0-0.01) Immature Gran % 0.4 % % (0.0-1.1) Immature Gran # 0.04 10^3/uL 10^3/uL (0.00-0.10) PT 14.4 SEC SEC (12.0-15.0) INR 1.10 (0.83-1.16) APTT 30.6 SEC SEC (23.0-38.0) VBG Lactic Acid POC Sodium Sodium 138 mEq/L mEq/L (135-145) POC Potassium Potassium 5.0 mEq/L mEq/L (3.5-5.2) POC Chloride Chloride 98 mEq/L mEq/L (97-110) Carbon Dioxide 26 mEq/l mEq/l (22-31) Anion Gap 14 mEq/L mEq/L (8-16) POC BUN BUN 10 mg/dL mg/dL (7-23) Creatinine 0.7 mg/dL mg/dL (0.6-1.0) POC Creatinine Estimated GFR > 60 Glucose 111 mg/dL H mg/dL (70-100) POC Glucose Calcium 9.4 mg/dL mg/dL (8.5-10.4) Magnesium 1.7 mg/dL mg/dL (1.6-2.3) Total Bilirubin 0.8 mg/dL mg/dL (0.1-1.4) Conjugated Bilirubin 0.4 mg/dL mg/dL (0.0-0.5) Unconjugated Bilirubin 0.4 mg/dL mg/dL (0.0-1.1) AST 29 IU/L IU/L (14-46) ALT 49 IU/L IU/L (9-52) Alkaline Phosphatase 178 IU/L H IU/L (38-126) Creatine Kinase 160 IU/L H IU/L (0-156) CK-MB (CK-2) Fraction 1.89 ng/mL ng/mL (0.00-3.19) CK-MB (CK-2) % 1.2 % % (0.0-4.0) Creatine Kinase Interp NEGATIVE (NEGATIVE) Troponin I < 0.012 ng/mL ng/mL (0.000-0.034) NT-Pro-B Natriuret Pep 2890 pg/mL H pg/mL (0-125) Total Protein 6.5 g/dL g/dL (6.3-8.2) Albumin 3.9 g/dL g/dL (3.5-5.0) Urine Color Urine Appearance Urine pH Ur Specific Roc[place]le Urine Protein Urine Ketones Urine Blood Urine Nitrate Urine Bilirubin Urine Urobilinogen Ur Leukocyte Esterase Urine Glucose Medications Given: Discontinued Medications Acetaminophen (Tylenol) 1,000 mg PO EDNOW ONE Stop: 09/30/17 06:02 Last Admin: 09/30/17 06:34 Dose: 1,000 mg Sodium Chloride (Ns) 1,000 mls @ 0 mls/hr IV ONCE ONE PRN Reason: Wide Open Stop: 09/30/17 06:07 Last Admin: 09/30/17 06:35 Dose: 1,000 mls Vancomycin/Sodium Chloride (Vancomycin 1 Gm (Premix)) 250 mls @ 250 mls/hr IV EDNOW ONE PRN Reason: Protocol Stop: 09/30/17 07:13 Last Admin: 09/30/17 07:13 Dose: 250 mls Piperacillin/Tazobactam/Dextrose (Zosyn (Premix)) 100 mls @ 200 mls/hr IV EDNOW ONE PRN Reason: Protocol Stop: 09/30/17 06:43 Last Admin: 09/30/17 06:36 Dose: 100 mls Point of Care Test Results: 09/30/17 06:05 POC Sodium 133 L POC Potassium 4.4 POC Chloride 98 POC BUN 9 POC Creatinine 0.8 POC Glucose 120 H Departure - Departure Disposition: [facility] Inpatient Acute Clinical Impression: Hypoxia, Tachycardia Fever Qualifiers: Fever type: unspecified Qualified Code(s): R50.9 - Fever, unspecified Altered mental status Qualifiers: Altered mental status type: unspecified Qualified Code(s): R41.82 - Altered mental status, unspecified Pulmonary embolism Qualifiers: Pulmonary embolism type: other Chronicity: chronic Acute cor pulmonale presence : without acute cor pulmonale Qualified Code(s): I27.82 - Chronic pulmonary embolism Condition: Critical Referrals: Maurisio Castillo MD [Primary Care Provider] - As per Instructions
[2017-09-30] MEDS ORDERED: ACETAMINOPHEN 500 MG TAB PO ONE (06:01)
--- NOTE | 2017-09-30 06:02 | CPEKG ---
Heart Rate: 134 RR Interval: 448 P-R Interval: 108 QRSD Interval: 74 QT Interval: 280 QTC Interval: 418 P Hammond: 18 QRS Hammond: 12 T Wave Hammond: -17 EKG Severity - ABNORMAL ECG - EKG Impression: SINUS TACHYCARDIA EKG Impression: BORDERLINE R WAVE PROGRESSION, ANTERIOR LEADS EKG Impression: ABNORMAL T, CONSIDER ISCHEMIA, ANT-LAT LEADS Electronically Signed By: Ta Dominguez 01-Oct-2017 12:25:17
[2017-09-30] MEDS ORDERED: NS 1,000 ML IV ONE (06:06)
[2017-09-30] MEDS ORDERED: IOPAMIDOL (ISOVUE 370) 100 ML BTL IV ONE (06:10)
[2017-09-30 06:11] LABS: PLATELET COUNT 585 10^3/uL (150-400)
[2017-09-30] MEDS ORDERED: VANCOMYCIN HCL/NORMAL SALINE 250 ML IV ONE (06:14)
[2017-09-30] MEDS ORDERED: PIPERACILLIN/TAZO 4.5 GM/DEX 100 ML IV ONE (06:14)
[2017-09-30 06:19] LABS: INR 1.1 (0.83-1.16); PROTIME(PATIENT) 14.4 SEC (12.0-15.0)
[2017-09-30 06:23] LABS: CREATINE KINASE 160 IU/L (0-156)
[2017-09-30] MEDS ORDERED: ENOXAPARIN 80 MG/0.8 ML SYR SC ONE ×2 (07:05→07:30)
[2017-09-30] MEDS ORDERED: HYDROmorphONE/DILAUDID 1 MG/ML INJ IVP ONE (07:48)
[2017-09-30] MEDS ORDERED: HYDROmorphONE/DILAUDID 2 MG/ML INJ ONE (07:51)
--- NOTE | 2017-09-30 10:03 | SOAPPROG ---
SOAP Progress Note Assessment/Plan: Assessment: Plan: 09/30/17 10:42 Pneumonia: associated with mental status changes, hypoxia, tachycardia, mildly increased WBC. Currently feeling much better, mentating well, afebrile. Unclear when this actually started, as pt had been feeling fairly well until early this morning. Will continue vancomycin and pip-nova for now to cover aspiration, possible pseudomonas from her recent hospital and rehab stays. Blood cx pending. She looks much better than her CT suggests she should. Oxygenating well on [place] oxygen. Reviewed CT scan with Dr. Medrano, and he will go ahead and tap her effusion, likely tomorrow given that she received lovenox 80mg this morning. Sepsis/SIRS: initially met criteria with altered mentation, fever, tachycardia. No hypotension, and WBC just below 12,000. Lactic acid normal. Pulmonary embolus: occurred during hospital stay and had been on lovenox. Was discontinued a week ago. Will continue full dose lovenox for now. Will check office chart to see if lower extremity doppler studies done. Will order if not. Spinal fusion: recovering, and had been doing fairly well at home. Has struggled some with pain medication regimen and sedation, but both she and her feel the current regimen is doing ok and would like to continue it. Chronic pain: as noted above, will continue current regimen Ischemic changes on EKG: likely related to tachycardia. CK-MB and troponin normal, and no evidence of coronary plaque on pt's EBT heart scan. DVT prophylaxis: on lovenox for PE Dispo: anticipate minimum of 2 [place] stay for pneumonia, pleural effusion, early sepsis, PE 09/30/17 10:49 09/30/17 11:01 09/30/17 11:27 Subjective: 62 yo woman with recent hx of L1-5 and T10-12 spinal fusion in mid-August to treat thoracic scoliosis and chronic back pain. Surgery done at [facility], and complicated by PE. She was treated with lovenox. Discharged to rehab post operatively, and has been home for about 2 weeks. Lovenox was discontinued about a week ago, and she hasn't been on anticoagulation since then. She had been doing well at home, with gradually decreasing pain. She was seen in the office yesterday for staple removal, and was doing well. Her oxygen saturation was 92%, she was afebrile, mentating well. Pulse was 107, but had been elevated since surgery, gradually coming down. Last night around 3am, she woke her . She was shivering and somewhat incoherent. Pulse ox was in the upper 80s on 3L nasal canula oxygen, though this was not unusual for her. She thought she'd slept for 6 hours straight, missing her midnight oxycodone dose, but she had taken it. Her checked her, then went back to sleep. This morning around 6am, she was much more incoherent so was brought to the ED. In the ED, she was tachycardic, in the 140s, febrile to 103, and hypoxic. WBC was mildly elevated at 11.27 with neutrophilia, platelet count elevated at 585. BNP was elevated at 2890, though lower than it had been when she was in the hospital following her surgery. Lactic acid was normal at 1.4. EKG showed some ischemic changes. CK was high at 160, but MB fraction and troponin negative. CT chest showed bilateral pneumonia, R>L pleural effusions, evidence of prior PE without extension of PE. R sided effusion is of moderate size, larger than seen previously. CT head was normal. She was given vancomycin, zosyn and transferred to the ICU. Currently she is feeling ok. Her back hurts some and she feels scared. No SOB but retrospectively notes that she has had some difficulty taking a deep breath and using her incentive spirometer since her discharge from the hospital. She has also noted some pleuritic chest pain with deep breath. No cough, fever, chills. No sick exposures and hasn't really been out much since discharge from rehab almost 2 weeks ago. No aspiration. Objective: Vital Signs Temp Pulse Resp BP Pulse Ox 37.4 C 106 H 18 108/67 95 09/30/17 09:06 09/30/17 09:06 09/30/17 09:06 09/30/17 09:06 09/30/17 09:06 PT 14.4 SEC (12.0-15.0) 09/30/17 06:00 INR 1.10 (0.83-1.16) 09/30/17 06:00 General: well-appearing, alert, clear, NAD HEENT: PERRL, EOMI. O/P dry Neck: supple, no masses, adenopathy. No thyroid tenderness, carotid bruits Lungs: somewhat diminished breath sounds, rales R base, no wheeze, rhonchi Cardiovascular: mildly tachycardic, regular, no murmur Abdomen: +bowel sounds, distended, mild diffuse tenderness, no masses or hepatosplenomegaly noted Extremities: no edema Skin: warm, dry, dressing over surgical site on back Neurologic: alert, moving all extremities, able to sit up in bed, mentating well without confusion Psychiatric: normal mood, affect. Puzzled about what happened ICD10 Worksheet Patient Problems: Problems Problem Status Onset Altered mental status Acute Fever Acute Hypoxia Acute Pulmonary embolism Acute Tachycardia Acute Debility Acute
[2017-09-30] MEDS ORDERED: ONDANSETRON DISINTEGRATING 4 MG TAB PO PRN (10:28)
[2017-09-30] MEDS ORDERED: BISACODYL 10 MG SUPP PR PRN (10:28)
[2017-09-30] MEDS ORDERED: LACTULOSE 20 GM/30 ML UDCUP PO PRN (10:28)
[2017-09-30] MEDS ORDERED: ONDANSETRON 4 MG/2 ML VIAL IVP PRN (10:28)
[2017-09-30] MEDS ORDERED: ACETAMINOPHEN 325 MG TAB PO PRN (10:28)
[2017-09-30] MEDS ORDERED: MAGNESIUM HYDROXIDE 30 ML UDCUP PO PRN (10:28)
[2017-09-30] MEDS ORDERED: POLYETHYLENE GLYCOL 3350 17 GM PKT PO PRN (10:28)
[2017-09-30] MEDS ORDERED: ALPRAZolam 0.5 MG TAB PO PRN (10:31)
[2017-09-30] MEDS ORDERED: fentaNYL 25 MCG PATCH TD SCH (10:45)
[2017-09-30] MEDS: BACLOFEN 10 MG TAB PO SCH ×2 (11:32→17:38)
[2017-09-30] MEDS: GABAPENTIN 300 MG CAP PO SCH ×3 (11:33→20:45)
[2017-09-30] MEDS: PANTOPRAZOLE SODIUM 40 MG TAB PO SCH (11:35)
[2017-09-30] MEDS: FERROUS SULFATE 325 MG TAB PO SCH (11:35)
[2017-09-30] MEDS: SPIRONOLACTONE 50 MG TAB PO SCH (11:35)
[2017-09-30] MEDS: oxyCODONE IR 5 MG TAB PO PRN ×3 (11:58→20:42)
--- NOTE | 2017-09-30 12:19 | PDMN ---
Medical Necessity Medical necessity: [id number] AMS, hypoxia( 76%) , tachycardia( 130's) , mildly increased WBC, R>L pleural effusion, PE recent sgy,( spinal fusion) EKG changes concerning for ischemia, anticipate > 2 midnights for ongoing monitoring, eval and tx
--- NOTE | 2017-09-30 12:53 | GHP ---
[f rep st] HISTORY AND PHYSICAL DATE OF ADMISSION: 09/30/2017 HISTORY OF PRESENT ILLNESS: The patient is a 62-year-old woman with a recent history of L1 through 5 and T10 through 12 spinal fusion in mid August to treat thoracic scoliosis and chronic back pain. Her surgery was done at [facility] and was complicated by pulmonary embolism. She was treated with Lovenox. She was subsequently discharged to rehab postoperatively and then has been home for about 2 weeks. Her Lovenox was discontinued about a week ago and she has not been on any anticoagulation since then. She had been doing well at home with gradually-decreasing pain. She was seen in the office yesterday for staple removal and was doing well. Her oxygen saturation was 92% on room air. She was afebrile and mentating well. Her pulse was 107, but had been elevated since her surgery and was gradually coming down. Last night around 3 a.m., she woke her . She was shivering and somewhat incoherent. Pulse ox was in the upper 80s on 3 L of nasal cannula, although this was not unusual for her. She thought she had slept for 6 hours straight, missing her midnight oxycodone dose, but she had taken it. Her checked her initially and then went back to sleep. This morning around 6 a.m., she was much more incoherent, so he brought her to the emergency department. In the emergency department, she was tachycardic in the 140s, febrile to 103, and hypoxic. Her white blood cell count was mildly elevated at 11.27 with neutrophilia and her platelet count was elevated at 585. BNP was elevated at 2890, though lower than it had been in the hospital following surgery. Her lactic acid was normal at 1.4. EKG showed sinus tachycardia with some ischemic changes. CK was high at 160, but the MB fraction was negative and troponin was negative. Her CT chest showed bilateral pneumonia, bilateral pleural effusions , worse on the left, and evidence of prior pulmonary embolism without extension of PE. Her left-sided effusion is of moderate size and larger than seen previously. CT of the head was normal. She was given vancomycin and Zosyn and transferred to the ICU. Currently, she is feeling okay. Her back hurts some, and she feels scared. She denies any shortness of breath or cough, but retrospectively notes that she had had some difficulty taking a deep breath and using her incentive spirometer since discharge from the hospital. She has also noted some pleuritic chest pain with a deep breath, but again no cough, fever, or chills. She has not had any sick exposures and has not really been out of her home much since discharge from rehab almost 2 weeks ago. No aspiration. PAST MEDICAL HISTORY: Scoliosis, depression, pelvic floor collapse, chronic back pain, insomnia, neuropathy. MEDICATIONS: Alprazolam 0.5 mg q.8 hours p.r.n., baclofen 10 mg t.i.d., Cymbalta 60 mg daily, fentanyl patch 25 mcg every 72 hours, ferrous sulfate 325 mg daily, gabapentin 300 mg t.i.d. and 900 mg at bedtime, oxycodone 20 mg q.3 hours as needed, pantoprazole 40 mg daily, spironolactone 100 mg daily, trazodone 150 mg at bedtime. ALLERGIES: Cephalexin, doxycycline, morphine, and environmental allergies. PAST SURGICAL HISTORY: Bladder surgery, tonsils, total abdominal hysterectomy, face-lift, recent spinal fusion. SOCIAL HISTORY: The patient is and she has 2 children. Her exercise is limited due to her back problems. She is a nonsmoker. FAMILY HISTORY: Her father at the age of 71 and had multiple sclerosis, prostate cancer, high cholesterol, and hypertension. Her mother is living. Her brother has back pain, hypertension, high cholesterol, and anxiety. REVIEW OF SYSTEMS: GENERAL: No fever or chills. Appetite has been off, but had been improving. HEENT: No rhinitis or other URI symptoms. Her ear feels clogged, but this is not unusual for her. RESPIRATORY: No cough. Pleuritic chest pain is noted in HPI. No clear shortness of breath. No history of aspiration. CARDIOVASCULAR: No chest pain, chest pressure. Sinus tachycardia noted since hospitalization, but gradually improving. GI: No nausea, vomiting , or diarrhea. She does have intermittent constipation related to chronic opioid use. : No dysuria, hematuria. MUSCULOSKELETAL: Chronic back pain. NEUROLOGIC: Mental status change as noted in HPI, but currently mentating normally. No headache. Moving all of her extremities. PSYCHIATRIC: Denies any depression or anxiety. PHYSICAL EXAMINATION: VITAL SIGNS: Initially in the emergency department, blood pressure was 129/82, heart rate 137, O2 saturation 80% on room air. Temperature 39.3. EKG showed sinus tachycardia. GENERAL: Well appearing, alert, mentating clearly in no acute distress. HEENT: Pupils equal, round, reactive to light. Extraocular movements are intact. Oropharynx is dry. NECK : Supple without masses or adenopathy. No thyroid tenderness. No carotid bruits. LUNGS: Somewhat diminished breath sounds. Rales noted in right base. No wheezing or rhonchi. CARDIOVASCULAR: Mildly tachycardic, regular rhythm without murmur. ABDOMEN: Normal bowel sounds. Somewhat distended. Mild diffuse tenderness. No masses or hepatosplenomegaly noted. EXTREMITIES: No edema. SKIN: Warm and dry. Dressing over surgical site on back noted. NEUROLOGIC: She is alert, moving all of her extremities. Able to sit up in bed. Mentating well without confusion. PSYCHIATRIC: Normal mood and affect, though puzzled about what happened. ASSESSMENT AND PLAN: 1. Pneumonia associated initially with mental status changes, hypoxia, tachycardia, and mildly increased white blood cell count. Currently feeling much better, mentating well, and afebrile. Unclear when this actually started as patient had been feeling fairly well until early this morning. For now, will continue vancomycin and Piperacillin-Tazobactam to cover aspiration and possible Pseudomonas from her recent hospital and rehabilitation stays. Blood cultures are pending. She looks much better than her CT scan suggests she should. She is oxygenating well on nasal cannula oxygen. Reviewed CT scan with Dr. Medrano, and he will go ahead and tap her effusion most likely tomorrow given that she received Lovenox earlier this morning. 2. Sepsis/systemic inflammatory response syndrome. Initially met criteria with altered mentation, fever, tachycardia. She does not have any hypotension. White blood cell count is just below 12,000. Lactic acid is normal. 3. Pulmonary embolus occurred during hospital stay and had been on Lovenox which was discontinued a week ago. Will continue full-dose Lovenox for now. Will check office chart to see if she has had lower extremity Doppler studies done and will order if not. 4. Spinal fusion recovering and had been doing fairly well at home. Has struggled some with pain medication regimen and sedation, but both she and her feel the current regimen is doing okay and would like to continue it. 5. Chronic pain as noted above. Will continue current management. Ischemic changes on EKG, likely related to tachycardia. CK-MB and troponin normal and no evidence of coronary plaque on patient's EBT heart scan. 6. Deep vein thrombosis prophylaxis on Lovenox for pulmonary embolism. Anticipate minimum of 2 midnight stays for pneumonia, pleural effusion, early sepsis, pulmonary embolus. /[id number]/MODL MTDD
[2017-09-30] MEDS: PIPERACILLIN/TAZO 4.5 GM/DEX 100 ML IV SCH ×2 (14:30→22:52)
--- NOTE | 2017-09-30 14:44 | GCON ---
[f rep st] CONSULTATION PULMONARY CRITICAL CARE CONSULTATION. DATE OF CONSULTATION: 09/30/2017 REASON FOR CONSULTATION: Confusion, fevers, possible pneumonia. HISTORY OF PRESENT ILLNESS: This patient is a pleasant 62-year-old who was feeling well yesterday. She was seen by her primary care physician. She was feeling well at that time. She awoke early this morning with chills and confusion. Her brought her to the emergency department. She was ta chycardic, febrile to 103, and hypoxemic. Blood pressure and lactate were normal. A CT scan of the chest was done, which showed a moderate to large left-sided pleural effusion with associated compress getachew atelectasis or possible infiltrate. There is a small effusion on the right with some basilar inf iltrate or atelectasis there as well. CT angiogram showed evidence of prior pulmonary embolic diseas e. CT scan of the head was done because of her confusion and was normal. She was admitted to the in tensive care unit. She did receive vancomycin and Zosyn in the emergency department. She was recently hospitalized at [facility] for thoracolumbar fusion with both an anteri or and posterior approach. The surgery was done for back pain and scoliosis. Apparently, she has henry d no postoperative issues; however, the pulmonary embolism was documented during that admission. She was treated with subcutaneous Lovenox, but this was discontinued after approximately 2 weeks. No fu rther anticoagulation was offered. Currently in the intensive care unit, she is doing well. She denies cough or mucus. She does not fe el like she has a chest infection. She does feel that she cannot get a full deep breath in. She has no history of lung disease. She is a never smoker. PAST MEDICAL HISTORY: Remarkable for the recent back surgery, scoliosis and chronic back pain, depre ssion, neuropathy, and insomnia. MEDICATIONS: On admission: Gabapentin, Flexeril, baclofen, spironolactone, Protonix, iron, Cymbalta , Xanax, trazodone, oxycodone, and a fentanyl patch. FAMILY HISTORY: Noncontributory. SOCIAL HISTORY: . Tobacco is negative. Significant alcohol is denied. FAMILY HISTORY: Noncontributory. REVIEW OF SYSTEMS: Negative, except as mentioned above. She denies heart disease, thromboembolic di sease prior to her recent hospitalization. PHYSICAL EXAMINATION: GENERAL: A pleasant woman who is in no acute distress. VITAL SIGNS: Oxygen is in place at 2 L with saturations 95%. Respiratory rate is 16, heart rate 100 with sinus rhythm on the monitor, blood pressure is105/65. HEENT: Mucous membranes are moist. NECK: Unremarkable for lymphadenopathy or thyromegaly. There is no jugular venous distention. CHES T: Coarse breath sounds bilaterally with some scattered rales at the bases. Breath sounds are more diminished/distant on the left than the right. Some bronchial changes are present. There are no rho nchi, no wheezes. HEART: Regular in rate and rhythm, tachycardic in the low 100s. There were no si gnificant murmurs, no gallops. ABDOMEN: Soft and nontender. Bowel sounds are present. BACK/SPINE: The back is dressed over the spine. This was not taken down and examined. By report, the incision is clean and dry. : No Palomino catheter is in place. EXTREMITIES: Remarkable for a trace plus ed cecilio, slightly worse on the left than the right. LABORATORY/IMAGING: CT scan of the chest is as outlined above. White blood cell count is 11,200, hematocrit 34, platelets are 585,000. PT and PTT were normal on ad mission. Lactate 1.4. Chemistries are remarkable for sodium 133, potassium 4.4, normal BUN and crea tinine, glucose 120. Liver function studies were normal. CPK mildly elevated at 160. BNP was 2890. Urinalysis was negative. ASSESSMENT: 1. Possible pneumonia. This is associated with bibasilar atelectasis/infiltrates. and a moderate to large size pleural effusion; however, other than her presenting symptoms of fevers, confusion, and h ypoxemia, she has little in the way of signs or symptoms regarding pneumonia. She is being treated w ith Zosyn and vancomycin for now. She was hospitalized recently so nosocomial organisms are possible . Other infectious etiologies do need to be considered. Blood cultures are pending. There is no ev idence of infection at this time related to her recent spinal surgery. 2. Pulmonary embolism. This is recent. There is no evidence of an acute clot. Recent outpatient [facility] extremity venous Doppler ultrasound was reportedly negative. 3. Status post recent thoracolumbar back surgery with fusion and hardware. Clinically doing well. 4. Metabolic. No current issues identified. 5. Deep venous thrombosis prophylaxis. On full-dose enoxaparin. 6. Gastrointestinal prophylaxis. On pantoprazole. 7. Anemia, mild, presumably postoperative. PLAN/RECOMMENDATIONS: The patient will be kept in the intensive care unit initially. She is doing q uite well now, is on 2 L, not tachypneic or tachycardic. She can possibly be transferred to a medica l-surgical bed later today if she remains stable. Current antibiotics will be continued. Xopenex wi ll be added to her regimen and inspiratory spirometry encouraged. Thoracentesis will be done tomorro w. This will be both a diagnostic and a therapeutic tap. Further plans and recommendations will be made based on her progress over the next 12-24 hours. /[id number]/MODL
--- NOTE | 2017-09-30 16:47 | ASMTCASEMG ---
Living Arrangements What is your living Answers: With Spouse arrangement? Who do you live with? Type Of Residence What kind of residence do Answers: House you live in? Discharge Plan Comments Coordination Status Comments Notes: Reviewed chart. Patient is a 62yo female who was admitted for pneumonia, sepsis/systemic inflammatory response syndrome, pulmonary embolus, spinal fusion recovery and chronic pain. Plan is to keep patient in ICU intially and if she improves over the next 12-24 hours, she can be moved to med-surg. No therapies have been ordered at this time. D/C plan TBD. CM will follow. Date Signed: 09/30/2017 04:47 PM Electronically Signed By:Aretha Pino LCSW
[2017-09-30] MEDS ORDERED: LEVALBUTEROL 1.25 MG/3 ML DEYVIAL IH PRN (17:37)
[2017-09-30] MEDS ORDERED: VANCOMYCIN 1 GM in NS 250 ML IV SCH (19:00)
[2017-09-30] MEDS: VANCOMYCIN HCL/NORMAL SALINE 250 ML IV SCH (19:56)
[2017-09-30] MEDS: traZODone 100 MG TAB PO SCH (19:59)
[2017-09-30] MEDS: ENOXAPARIN 80 MG/0.8 ML SYR SC SCH (19:59)
[2017-09-30] MEDS: SENNOSIDES/DOCUSATE SODIUM TAB PO SCH (19:59)
[2017-09-30] MEDS: DULoxetine 60 MG CAP PO SCH (19:59)
[2017-09-30] MEDS: ZOLPIDEM TARTRATE 5 MG TAB PO PRN (20:42)
[2017-10-01] MEDS: oxyCODONE IR 5 MG TAB PO PRN ×4 (05:26→20:55)
[2017-10-01] MEDS: PIPERACILLIN/TAZO 4.5 GM/DEX 100 ML IV SCH (05:27)
[2017-10-01 05:35] LABS: PLATELET COUNT 392 10^3/uL (150-400)
[2017-10-01] MEDS: FERROUS SULFATE 325 MG TAB PO SCH (08:16)
[2017-10-01] MEDS: BACLOFEN 10 MG TAB PO SCH ×3 (08:16→18:03)
[2017-10-01] MEDS: GABAPENTIN 300 MG CAP PO SCH ×4 (08:17→20:54)
[2017-10-01] MEDS: SENNOSIDES/DOCUSATE SODIUM TAB PO SCH ×2 (08:18→20:55)
[2017-10-01] MEDS: PANTOPRAZOLE SODIUM 40 MG TAB PO SCH (08:18)
[2017-10-01] MEDS: VANCOMYCIN HCL/NORMAL SALINE 250 ML IV SCH (08:19)
[2017-10-01] MEDS: SPIRONOLACTONE 50 MG TAB PO SCH (08:19)
--- NOTE | 2017-10-01 11:37 | GCON ---
[f rep st] CONSULTATION INFECTIOUS DISEASE CONSULTATION DATE OF CONSULTATION: 10/01/2017 REASON FOR CONSULTATION: Source of infection relating to sepsis. HISTORY OF PRESENT ILLNESS: A 62-year-old woman with a past medical history of scoliosis, who in mid August underwent both an anterior and a posterior approach, resulting in an L1 to L5 and a T10 through T12 spinal fusion. Her course was complicated by a pulmonary embolus and anemia, requiring 3 units of blood. Two were previously banked. She also describes significant anasarca following procedure, gaining almost 30 pounds in weight, with associated abdominal distention and lower extremity edema. Her hospital course was followed by a short stint in rehab from September 14 through but has been home since that time. She reports that she was generally doing well. She had some mid chest sensation, along where her bra strap would normally be, of tightness, which she related to healing of her back. She also left the initial hospitalization with some mild right leg weakness and right lateral thigh numbness. On the day of admission, 09/30/2017, patient had a sudden onset of confusion, fever, and low oxygenation (patient has a pulse ox at home). In fact , it had been several days where she had not been able to get her oxygen levels above the mid 80s. She does describe coughing, but it has been ongoing since her procedure. Mildly productive. No hemoptysis. She denies any sick contacts. No myalgias. No drainage from her incision that she is aware of, but she left her dressing in place from her discharge from hospitalization until she was admitted here. She denies night sweats, low appetite, and has been primarily eating Ensure. She has been constipated, but this resolved after taking laxatives a couple days ago. No rashes. She has had no recent international travel. PAST MEDICAL HISTORY: Scoliosis, depression, pelvic floor collapse, chronic back pain, insomnia, neuropathy. MEDICATIONS: On admission, patient was given a dose of vancomycin and then started on Zosyn 4.5 g IV q.8. She is also on Tylenol, Xanax, baclofen, Dulcolax, Cymbalta, Lovenox at therapeutic doses, fentanyl patch, gabapentin, lactulose, Zofran, oxycodone, MiraLAX, trazodone. ALLERGIES: Morphine causes joint swelling and rash, which happened recently. Keflex, she also describes joint swelling, which happened 10 years ago. SOCIAL HISTORY: She is . She was born in [place], but moved to [place] in , lived there 25 years and returned to [place] 11 years ago. 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 No tobacco. They do have a cat , and a couple years ago, she traveled to [place]. FAMILY HISTORY: Positive for multiple sclerosis and prostate cancer in her father. She has 2 adult children who live in [place] and [place], [place]. REVIEW OF SYSTEMS: A complete 10-point review of systems was performed and is negative, except as mentioned in the HPI. PHYSICAL EXAM: ADMISSION VITAL SIGNS: 128/82, HR 137, O2 saturation 80% on room air, temperature 39.3, current blood pressure 109/63, heart rate 78-100, respiratory rate 18, 96% saturation on 2 L. GENERAL: This is a pleasant, nontoxic-appearing woman, lying in bed, in no acute distress. HEENT: Pupils are reactive bilaterally. No conjunctival hemorrhages. Oropharynx: Excellent dentition with multiple crowns in place, mildly dry mucous membranes. No oral ulcerations or exudates. NECK: Supple. No lymphadenopathy. CARDIOVASCULAR: Borderline tachycardia, regular rate. No murmur. CHEST: She had crackles in the left greater than right. No wheezes. BACK: Exam showed a long midline incision, the most anterior part with some mild juan a pinkness discoloration, without purulence able to be expressed. No fluctuance. Otherwise, incision was intact with faisal still in place. No drains were present. ABDOMEN: Distended, nontender. Bowel sounds are present. EXTREMITIES: Very trace lower extremity edema. NEUROLOGIC: Patient was moving all 4 extremities roughly equally. A more detailed neurologic exam was performed on her lower extremities to test her motor. Weakness in the right side was not detectable by me. SKIN: No rashes. She had a peripheral IV in place in her left forearm that was clean, dry, and intact. LABORATORY DATA: White count on admission 11.2, today 7.4, hematocrit 28, platelets of 392, down from 585, 76% neutrophils, 11% lymphocytes, creatinine 0.6, AST 26, ALT 42, alkaline phosphatase 122, albumin 3.0. Urinalysis was negative. Blood cultures were collected and are no growth to date. Chest x- ray and CT scan were personally reviewed by me. Chest x-ray shows bilateral pleural effusions, left greater than right. CT scan shows some residual pulmonary emboli, bilateral pleural effusions, left greater than right, with some associated consolidation versus atelectasis, although there are some air bronchograms on the left. CT of the head was also performed and was unremarkable. ASSESSMENT AND PLAN: This is a 62-year-old woman who is a little less than 1 month out from extensive lumbar surgery, who presents with fever and is found to have bilateral pleural effusions with a possible consolidation on the left. Also, considerations for source of infection includes postoperative infection, although incision generally looks fairly good, although some juan a pinkness at the top of the incision. Suspect this area is most likely due to pressure, but could be a consideration if other sources are excluded. The patient has had some recent hospitalization and received perioperative antibiotics relating to her surgery, which may put her at mild risk for more resistant organisms. Records from the outside hospital are not currently available to me, but she may also have received some antibiotics relating to her pulmonary embolus. Due to significant improvement overnight, doubt that MRSA is mediating her disease. Further, Pseudomonas also unlikely pathogen. Considerations for etiology of pneumonia include typical community-acquired pneumonia, as well as aspiration PNA in the postoperative period. RECOMMENDATIONS: 1. Discontinue vancomycin. 2. Would dose adjust the Zosyn down to standard dosing 3.375 g IV q.8 due to low suspicion for Pseudomonas. 3. Agree with aspiration of pleural effusion and cultivating to help assess the etiology of infection. 4. Due to rapid onset of symptoms, I believe it is reasonable to obtain a respiratory panel PCR, which can also help determine the etiology of atypical pneumonias. At this point, would not add coverage for atypical pneumonia due to clinical improvement overnight. 5. If symptoms persist or patient develops increased back pain, could consider pursuing additional imaging of her back, but at this time, would pursue other sources of infection. Thank you for this consultation. Will continue to follow on a daily basis. /[id number]/MODL MTDD
[2017-10-01] MEDS ORDERED: LIDOCAINE 1% 300 MG/30 ML SDV ONE (11:59)
[2017-10-01] MEDS: PIPERACILLIN/TAZO 3.375 GM/DEX 50 ML IV SCH ×4 (12:07→23:38)
--- NOTE | 2017-10-01 12:46 | PDINTPN ---
Finance Admin Progress Note Assessment/Plan: Assessment: Febrile illness with altered mental status. Associated with atelectasis or infiltrates at the bases, thus possible pneumonia however little in the way of pulmonary symptoms. Does have a fairly large left pleural effusion. Covered broadly comma with Zosyn and Vanco. Now on Zosyn alone. Clinically doing well , not short of breath, no cough, no mucus, no chest pain. On low-flow oxygen. Recent back surgery, without evidence of infection. Left greater than right pleural effusions. For thoracentesis today. Studies to be sent, including cultures and cytologies. Recent pulmonary embolism, not acute. On full-dose Lovenox. On hold this morning for thoracentesis. To be resumed afterwards. Gastroesophageal reflux disease: On pantoprazole. Plan: Continue present antibiotics, bronchopulmonary therapies as needed and oxygen. For thoracentesis today. She can transfer to a medical-surgical bed. If she continues to do well and cultures in laboratory, follow-up x-rays with significant abnormalities she can perhaps be discharged in the next day or to on empiric antibiotics to complete a 7 to 10 day course. Follow-up will be with Dr. Castillo/Jeffry as an outpatient. Subjective: Doing well. Specific complaints. Denies significant shortness of breath. No cough or mucus. No chest pain. No urinary symptoms. Back somewhat sore as expected. Objective: Vital Signs Temp Pulse Resp BP Pulse Ox 37.1 C 87 17 117/78 94 10/01/17 10:00 10/01/17 10:00 10/01/17 10:00 10/01/17 10:00 10/01/17 10:00 Laboratory Results 10/01/17 05:20 10/01/17 05:20 09/30/17 10/01/17 10/02/17 05:59 05:59 05:59 Intake Total 976 Output Total 1025 Balance -49 PT 14.4 SEC (12.0-15.0) 09/30/17 06:00 INR 1.10 (0.83-1.16) 09/30/17 06:00 Physical Exam - Physical Exam General Appearance: alert, no apparent distress EENT: other (Nasal cannula in place at 2 L, 95%.) Neck: supple, normal inspection, other (No pharyngitis), No lymphadenopathy (R) , No lymphadenopathy (L), No thyromegaly Respiratory: lungs clear (Anteriorly), decreased breath sounds (At bases, left greater than right. Few scattered rales bilaterally. Bronchial changes at the left base), No rhonchi, No wheezing Cardiac/Chest: regular rate, rhythm, No gallop Abdomen: normal bowel sounds, non-tender, soft Pelvic Exam: other (Using urinal) Back: Other (Dressing taken down by Dr. Welch. No areas of concern by report) Extremities: pedal edema (Trace) Neuro/Psych: no motor/sensory deficits, No cognition abnormalities ICD10 Worksheet Patient Problems: Problems Problem Status Onset Hypoxia Acute Tachycardia Acute Fever Acute Altered mental status Acute Pulmonary embolism Acute Debility Acute
[2017-10-01] MEDS: ENOXAPARIN 80 MG/0.8 ML SYR SC SCH (20:53)
[2017-10-01] MEDS: DULoxetine 60 MG CAP PO SCH (20:54)
[2017-10-01] MEDS: traZODone 100 MG TAB PO SCH (20:54)
[2017-10-01] MEDS: ZOLPIDEM TARTRATE 5 MG TAB PO PRN (20:54)
[2017-10-02] MEDS: oxyCODONE IR 5 MG TAB PO PRN ×3 (04:49→10:42)
[2017-10-02] MEDS: PIPERACILLIN/TAZO 3.375 GM/DEX 50 ML IV SCH (04:49)
[2017-10-02 05:48] LABS: PLATELET COUNT 428 10^3/uL (150-400)
[2017-10-02 07:29] VITALS: BP 106/71; PULSE 90; RESP 18; TEMP 98.3; O2SAT 96
[2017-10-02] MEDS: PANTOPRAZOLE SODIUM 40 MG TAB PO SCH (08:25)
[2017-10-02] MEDS: FERROUS SULFATE 325 MG TAB PO SCH (08:25)
[2017-10-02] MEDS: SPIRONOLACTONE 50 MG TAB PO SCH (08:25)
[2017-10-02] MEDS: SENNOSIDES/DOCUSATE SODIUM TAB PO SCH (08:25)
[2017-10-02] MEDS: GABAPENTIN 300 MG CAP PO SCH ×2 (08:25→12:19)
[2017-10-02] MEDS: BACLOFEN 10 MG TAB PO SCH ×2 (08:25→13:44)
[2017-10-02] MEDS: ENOXAPARIN 80 MG/0.8 ML SYR SC SCH (08:26)
--- NOTE | 2017-10-02 10:16 | PDIAF ---
- Diagnosis Diagnosis: pneumonia Code Status: Full Code - Medication Management Discharge Medications: Medications to Continue on Transfer ALPRAZolam [Xanax 0.5 MG (*)] 1 tab PO Q8 PRN #14 tab 09/17/17 [Last Taken 3 Days Ago ~09/27/17] DULoxetine [Cymbalta 60 MG (*)] 1 cap PO HS #30 cap 09/17/17 [Last Taken ] Ferrous Sulfate [Ferrous Sulf 325 MG (*)] 325 mg PO DAILY #26 tab 09/17/17 [ Last Taken 09/29/17] Pantoprazole Sodium [Protonix 40mg (*)] 40 mg PO DAILY #30 tab 09/17/17 [Last Taken 09/29/17] Spironolactone [Aldactone] 100 mg PO DAILY #30 tab 09/17/17 [Last Taken 09/29/17 ] fentaNYL [Duragesic 25 MCG Patch (*)] 25 mcg TD Q72H #10 patch 09/17/17 [Last Taken 09/27/17] Baclofen [Baclofen 10 mg (*)] 10 mg PO TID@,,09/30/17 [Last Taken 18:00] Cyclobenzaprine [Flexeril 10 MG (*)] 10 mg PO HS 09/30/17 [Last Taken 09/29/17] Gabapentin [Neurontin 300 MG (*)] 300 mg PO TID@,,18 09/30/17 [Last Taken 18:00] Gabapentin [Neurontin 300 MG (*)] 900 mg PO HS 09/30/17 [Last Taken 09/29/17] Herbals/Supplements -Info Only 1 ea PO DAILY 09/30/17 [Last Taken Unknown] oxyCODONE IR [Oxycodone Ir (*)] 20 mg PO Q3HRS PRN 09/30/17 [Last Taken 03:00] traZODone [traZODONE 100MG (*)] 150 mg PO HS 09/30/17 [Last Taken 09/29/17] Discharge Medications: Refer to the Discharge Home Medication list for PRN reason. - Orders Services needed: Home Care, Registered Nurse (please change dressings daily on superior pole of patient's back incision and watch for s/sx's of infection) Home Care Face to Face: I certify that this patient was under my care and that I had the required [id number] encounter meeting the encounter requirements on the discharge day. My findings support the fact that the patient is homebound as defined in Home Care Face to Face Continued: [facility] Chapter 7 Medicare Benefits Manual 30.1.1 , The condition of the patient is such that there exists a normal inability to leave home and consequently, leaving home would require a considerable and taxing effort. - Follow Up Care Current Providers and Referrals: Maurisio Castillo MD [Primary Care Provider] - As per Instructions
--- NOTE | 2017-10-02 10:20 | PCMIDPN ---
Assessment/Plan: 1.? Postoperative pneumonia: The patient is eager to go home. This is not unreasonable given her clinical stability. If she goes home, would continue Zosyn and change to oral Augmentin 875 p.o. Twice daily to complete 10 days of therapy for? Health Care associated pneumonia. 2. Miscellaneous: The superior pole of the patient's back incision is slightly open, but does not appear infected presently. Will order home health/nurse assistance to change dressings and keep the area clean. Subjective: Patient tells me"I want go home."Status post thoracentesis; 750 cc of yellow fluid removed. 87% of the cells were mesothelial cells. Cultures are pending. Respiratory panel negative. Patient fee much better. sHe does not feel that she has to stay in the hospital. Objective: Zosyn 3375 g IV q.6 hours day 1 (antibiotics day 2) Tmax 37.4 Vital Signs Temp Pulse Resp BP Pulse Ox 36.8 C 90 18 106/71 96 10/02/17 07:28 10/02/17 07:28 10/02/17 07:28 10/02/17 07:28 10/02/17 07:28 Microbiology 10/01/17 12:55 Gram Stain - Final Pleural Fluid - Aspirate 10/01/17 12:30 Respiratory Panel (PCR) - Final Nasal, Sinus - Swab No Organism Detected 10/01/17 12:10 Gram Stain - Final Thoracic Fluid - Aspirate Body Fluid Culture - Final Laboratory Results 10/02/17 04:57 10/02/17 04:57 10/01/17 10/02/17 10/03/17 05:59 05:59 06:59 Intake Total 976 1300 200 Output Total 1025 Balance -49 1300 200 No new microbiology - Physical Exam General Appearance: alert, no apparent distress EENT: pharynx normal, No thrush Respiratory: lungs clear, other (Diminished breath sounds at bilateral lung bases) Cardiac/Chest: regular rate, rhythm, No systolic murmur Abdomen: non-tender, soft Back: other (The patient has an incision that get in her mid t-spine and extend down to her sacral spine. The superior pole of the incision has some red tito- incisional erythema, and the incision is slightly open, but is not actively draining. No tenderness.) Skin: No rash ICD10 Worksheet Patient Problems: Problems Problem Status Onset Altered mental status Acute Fever Acute Hypoxia Acute Pulmonary embolism Acute Tachycardia Acute Debility Acute
--- NOTE | 2017-10-02 10:45 | SOAPPROG ---
Downtime Inpatient MD Late Entry SOAP Note: Due to my forgetting and getting distracted, I am recreating the following medical record entry as of this date and time based on the information specified below: 10/01/2017, 8:30 AM Pt is doing much better this morning. No confusion. Slept well. Did not have have oxycodone for 8 hours last night. Did get ambien for sleep. O: Afevrile. Lungs with decrased lung sounds in base R worse than L. COR RRR. Edema in legs stable to improved. A: Stable. Small PE unlikely related to her episolde last night. I suspect that she was hypoxic when she slept due to the barcotic pain medications. P: Will need to ontintue to redue narcotics. I suspect that it will require an inpatient rehab center to effectively allow witghdrawal of narcotic meds. MD Nabila
[2017-10-02] MEDS ORDERED: oxyCODONE IR 5 MG TAB PO PRN (11:30)
--- NOTE | 2017-10-02 12:04 | PDIAF ---
- Diagnosis Diagnosis: pneumonia Code Status: Full Code - Medication Management Discharge Medications: Medications to Continue on Transfer ALPRAZolam [Xanax 0.5 MG (*)] 1 tab PO Q8 PRN #14 tab 09/17/17 [Last Taken 3 Days Ago ~09/27/17] DULoxetine [Cymbalta 60 MG (*)] 1 cap PO HS #30 cap 09/17/17 [Last Taken ] Ferrous Sulfate [Ferrous Sulf 325 MG (*)] 325 mg PO DAILY #26 tab 09/17/17 [ Last Taken 09/29/17] Spironolactone [Aldactone] 100 mg PO DAILY #30 tab 09/17/17 [Last Taken 09/29/17 ] fentaNYL [Duragesic 25 MCG Patch (*)] 25 mcg TD Q72H #10 patch 09/17/17 [Last Taken 09/27/17] Cyclobenzaprine [Flexeril 10 MG (*)] 10 mg PO HS 09/30/17 [Last Taken 09/29/17] Gabapentin [Neurontin 300 MG (*)] 300 mg PO TID@,,18 09/30/17 [Last Taken 18:00] Gabapentin [Neurontin 300 MG (*)] 900 mg PO HS 09/30/17 [Last Taken 09/29/17] Herbals/Supplements -Info Only 1 ea PO DAILY 09/30/17 [Last Taken Unknown] oxyCODONE IR [Oxycodone Ir (*)] 20 mg PO Q3HRS PRN 09/30/17 [Last Taken 03:00] Acetaminophen [Tylenol 325mg (*)] 650 mg PO Q4HRS PRN tab 10/02/17 [Last Taken Unknown] Amoxicillin/Clavulanate Pot [Augmentin 875 MG TAB (*)] 875 mg PO BID 10 Days # 20 tab 10/02/17 [Last Taken Unknown] Rivaroxaban [Xarelto] 20 mg PO DAILY #30 tab 10/02/17 [Last Taken Unknown] Zolpidem Tartrate [Ambien 5MG (*)] 5 mg PO HS PRN #30 tab 10/02/17 [Last Taken Unknown] traZODone [traZODONE 100MG (*)] 100 mg PO HS #0 10/02/17 [Last Taken 09/29/17] Discharge Medications: Refer to the Discharge Home Medication list for PRN reason. - Orders Services needed: Home Care, Registered Nurse (wound care superior pole change dressing daily), Physical Therapy Home Care Face to Face: I certify that this patient was under my care and that I had the required [id number] encounter meeting the encounter requirements on the discharge day. My findings support the fact that the patient is homebound as defined in Home Care Face to Face Continued: CMS Chapter 7 Medicare Benefits Manual 30.1.1 , The condition of the patient is such that there exists a normal inability to leave home and consequently, leaving home would require a considerable and taxing effort. Diet Recommendation: no restrictions on diet Diet Texture: Regular Texture Diet - Follow Up Care Current Providers and Referrals: Maurisio Castillo MD [Primary Care Provider] - As per Instructions
--- NOTE | 2017-10-02 12:14 | SOAPPROG ---
SOAP Progress Note Assessment/Plan: Assessment: 62 yo female admitted w/fever/chills/presumed pna, L sided pleural effusion s/p therapeutic and diagnostic thoracentesis, f/b pulmonary and i.d. -Will d/c home today- will change to augmentin 875 po bid from zosyn per id rec' s, follow w/ pl effusion cytology pending, sputum cytology neg. Has f/u with Dr Castillo on Wed. Cont w/ oxygen at night at home, may need in day as well - dw spouse (dentist) he has a pulse ox at home and will monitor to keep sats above 90. (goal low 90's). Work on incentive spirometry. -small PE - will send home on xarelto - was on enoxaparin initially from first surgery, then a gap, then restarted enoxaparin in this hospitalization, will d/ c on xarelto. -wound upper pole of incision - hh/RN to change dressing daily, follow closely, f/u in clinic on Wed. -pain mngt - reviewed all meds w/ spouse and pt - she is to be very careful w/ oxycontin working on decreasing does by spacing out intervals between them (she was able to extend hours between doses here). Will stop baclofen. Decrease trazodone to 100 and continue taper down. Decrease ambien from 10 mg to 5 mg as she tolerated it just fine at hospital. Cont gabapentin. Plan: 10/02/17 12:06 10/02/17 12:21 Subjective: Anxious to go home, doing ok overall, feels more comfortable after the thoracentesis Objective: Vital Signs Temp Pulse Resp BP Pulse Ox 36.8 C 90 18 106/71 96 10/02/17 07:28 10/02/17 07:28 10/02/17 07:28 10/02/17 07:28 10/02/17 07:28 Microbiology 10/01/17 12:55 Gram Stain - Final Pleural Fluid - Aspirate 10/01/17 12:30 Respiratory Panel (PCR) - Final Nasal, Sinus - Swab No Organism Detected 10/01/17 12:10 Gram Stain - Final Thoracic Fluid - Aspirate Body Fluid Culture - Final Laboratory Results 10/02/17 04:57 10/02/17 04:57 10/01/17 10/02/17 10/03/17 05:59 05:59 06:59 Intake Total 976 1300 200 Output Total 1025 Balance -49 1300 200 PT 14.4 SEC (12.0-15.0) 09/30/17 06:00 INR 1.10 (0.83-1.16) 09/30/17 06:00 Gen: A&o x 3, spouse at bedside, nl mentation this am Heent: perr, eomi NEck: soft supple Back: wound at top w/ some mild erythema and clear dressing intact, rest of wound healing well Chest: mildy decreased bs L>R CV: rrr Ext: 1+ edema ble - Pending Discharge Pending Discharge Within 24 Hours: Yes Pending Discharge Date: 10/03/17 Pending Discharge Time: 11:00 ICD10 Worksheet Patient Problems: Problems Problem Status Onset Altered mental status Acute Fever Acute Hypoxia Acute Pulmonary embolism Acute Tachycardia Acute Debility Acute
--- NOTE | 2017-10-02 13:10 | ASMTCMCOM ---
CM Note CM Note Notes: Spoke w/pt and Bobby, will discharge today. Pt is current with [facility] but they are both very unhappy with the care. initially did not want an RN just PT but Dr wants daily dressing changes. They want to switch to a new home care agency. CM spoke w/Triny at [facility] and let her know pt no longer wishes to have their services, she will discuss with her director and likely they will reach out to pt and . CM let know and he is fine speaking with them about it. Home care arranged with [facility], I spoke w/Mary Kate Bonilla, who was able to accept pt. She will call pt chet. DC Plan: Homecare/ [facility] (RN/PT) Date Signed: 10/02/2017 01:09 PM Electronically Signed By:Martina Frey RN
--- NOTE | 2017-10-02 13:24 | ASMTLACE ---
FRANK Length of stay for Answers: 2 days current admission Acuity / Level of Answers: Yes Care: Did the patient have an inpatient admission? Comorbidities - select Answers: Opioid dependence all that apply / Chronic pain Other Notes: scoliosis # of Emergency department Answers: 0 visits in the last 6 months Social determinants Answers: Mental health diagnosis (anxiety, depression, pers onality disorders, etc.) Score: 13 Date Signed: 10/02/2017 01:23 PM Electronically Signed By:Martina Frey RN
--- NOTE | 2017-10-02 13:31 | GDS ---
[f rep st] DISCHARGE SUMMARY The patient is a 62-year-old female who presented to the ER early in the morning on 09/30/2017 with a recent history of major spinal surgery, a small pulmonary embolism, chronic pain, who had woken up earlier that morning with some confusion and chills. On presentation in the ER she was tachycardic and hypoxic with confusion. Head CT was negative. CT angio showing large left pleural effusion, smaller right-sided pleural effusion, with likely pneumonia and a right upper lobe subsegmental PE. The patient was started empirically on Zosyn and vancomycin. She stabilized quite rapidly while in the ER and was admitted to the ICU. She did not have an elevated lactate level and had a mildly elevated white count with anemia, likely secondary to her recent surgery. During her hospital course, Dr. Dony Medrano was consulted while she was in the intensive care unit and due to her large pleural effusion he ultimately ended up doing a diagnostic and therapeutic thoracentesis and was able to remove 750 mL of fluid of which cytology is pending, but it appears mesothelial cells and transudative fluid. Infectious Disease was consulted. Dr. Constanza Welch initially saw the patient and recommended discontinuing vancomycin, continuing on Zosyn, following along with the pleural effusion and checking a respiratory panel PCR. The respiratory panel PCR returned negative and on 10/02/2017 the patient was requesting to go home. Infectious Disease was consulted and agreed that she was stabilized for this as she has been doing so well and was able to transfer rapidly out of the ICU and her hospital course was unremarkable, no recurrent fevers, and on 10/02/17 Dr. Vivien Gonzalez recommended placing her on Augmentin 875 mg b.i.d. for 10 days and follow up as outpatient. However, if any recurrent fevers or chills further work up would need to be done with looking for possible source from her recent major fusion which was done by Dr. Garcia at [facility]. The patient continued to feel better and had a lot of relief from the thoracentesis and she and her spouse felt she was ready for discharge. Her , of note, is a dentist who has had good medical knowledge and a pulse oximeter at home and felt very comfortable in watching and taking care of his . She will be discharged with home health care, an RN to look at 1 area of her incision at the very superior pole on her back from the major spinal surgery infusion where there is a little bit of erythema and she will have daily dressing changes and follow up with Dr. Castillo in clinic on Wednesday, October 06 at 2 p.m. for this as well. Also, we are requesting home physical therapy to help patient in rehabilitation. Medications on discharge were decreased from her admission status to decrease the possibility of polypharmacy contributing to her acute decline prior to admission. DISCHARGE MEDICATIONS: Tylenol 325-650 p.o. q.4-6 hours p.r.n. not to exceed 2400 mg a day, Xanax 0.5 mg only p.r.n. anxiety attack. Discussed with spouse and patient. She rarely uses, if anything once per week. Discussed risks, benefits with them. Amoxicillin-Clavulanic acid 875 mg p.o. b.i.d. x10 days. Discontinued her baclofen. Cymbalta 60 mg p.o. at bedtime, fentanyl 25 mcg q. 3 , ferrous sulfate 325 mg p.o. daily, Neurontin 300 p.o. t.i.d. and 900 mg p.o. at bedtime. She will stop the PPI and resume an H2 jud at home as she tolerates this well is aware of risks, benefits. She will be placed on Xarelto 20 mg p.o. daily. Continue spironolactone 100 mg daily. Decrease trazodone from 150 mg at bedtime to 100 at bedtime and they are going to continue tapering down. Zolpidem 5 mg at bedtime, decreased from prior 10 mg at bedtime as she tolerated 5 mg while in the hospital and again want to decrease any increased sedation as possible and lastly oxycodone IR 20 p.o. up to q.3 hours p.r.n. She has been able to space out the intervals up to 4 even 6 hours while she was in the hospital. Reviewed this with spouse and patient and they are on board to continue the taper with strict maximum guidelines discussed and they will follow up with Dr. Castillo this week and call me if any questions arise over the weekend. /[id number]/MODL MTDD
--- NOTE | 2017-10-02 17:18 | ASDISCHSUM ---
Discharge Information Plan Status:Home with Home Health Medically Cleared to Leave: Discharge Date:10/02/2017 12:52 PM CM D/C Disposition:Home Health Service ADT D/C Disposition:Home Health Service Projected Discharge Date:10/02/2017 11:00 AM Transportation at D/C:Family Discharge Delay Reason: Follow-Up Date:10/02/2017 11:00 AM Discharge Slot: Final Diagnosis: Placement Information Referral Type:*Home Health Care Services Referral ID:[id number] Provider Name:[facility] Address 1:[address] Address 2: City:[place] Selection Factors: State:[place] Patient Contact Information Contact Name:MEGHAN Relationship: Address:[address] [place] [address] City:[place] Alternate Phone: State/Zip Code:[place] [address] Email: Financial Information Financial Class:HMO and PPO Plans Primary Plan Desc:H[employer] Primary Plan Number:[id number] Secondary Plan Desc: Secondary Plan Number: Assessment Information [facility] Initial CM Assessment Living Arrangements What is your living Answers: With Spouse arrangement? Who do you live with? Type Of Residence What kind of residence do Answers: House you live in? Discharge Plan Comments Coordination Status Comments Notes: Reviewed chart. Patient is a 62yo female who was admitted for pneumonia, sepsis/systemic inflammatory response syndrome, pulmonary embolus, spinal fusion recovery and chronic pain. Plan is to keep patient in ICU intially and if she improves over the next 12-24 hours, she can be moved to med-surg. No therapies have been ordered at this time. D/C plan TBD. CM will follow. Date Signed: 09/30/2017 04:47 PM Electronically Signed By:Aretha Pino LCSW [facility] CM Progress Note CM Note CM Note Notes: Spoke w/pt and Bobby, will discharge today. Pt is current with [facility] but they are both very unhappy with the care. initially did not want an RN just PT but Dr wants daily dressing changes. They want to switch to a new home care agency. CM spoke w/Triny at [facility] and let her know pt no longer wishes to have their services, she will discuss with her director and likely they will reach out to pt and . CM let know and he is fine speaking with them about it. Home care arranged with [facility], I spoke w/Mary Kate Bonilla, who was able to accept pt. She will call pt DC Plan: Homecare/ [facility] (RN/PT) Date Signed: 10/02/2017 01:09 PM Electronically Signed By:Martina Frey RN Case Management Discharge Plan Note Case Management Discharge Discharge Order Complete? Answers: Yes Followup Appointment 10/06/2017 12:00 AM Patient to Obtain Answers: Independently Medications Transportation Arranged Answers: Family/Friends Faxed Final Orders Answers: Yes Family Notified Answers: Yes Discharge Comments Notes: D/suly RN, final orders faxed, Mary Kate at [facility] notified, RN to call report. Date Signed: 10/02/2017 01:13 PM Electronically Signed By:Martina Frey RN TRISHAE FRANK Length of stay for Answers: 2 days current admission Acuity / Level of Answers: Yes Care: Did the patient have an inpatient admission? Comorbidities - select Answers: Opioid dependence all that apply / Chronic pain Other Notes: scoliosis # of Emergency department Answers: 0 visits in the last 6 months Social determinants Answers: Mental health diagnosis (anxiety, depression, pers onality disorders, etc.) Score: 13 Date Signed: 10/02/2017 01:23 PM Electronically Signed By:Martina Frey RN Intervention Information
[2017-10-02] MEDS ORDERED: AMOXICILLIN/CLAVULANATE POT 875/125 MG TAB PO SCH (21:00)
[2017-10-03] MEDS ORDERED: RIVAROXABAN 20 MG TAB PO SCH (09:00)
== END 2017-10-02 12:52 | disposition home health service (06) | DRG 194 ==
LOC: F2N 08:30 → F3E 10-01 13:31
PROVIDERS: ADMIT Internal Medicine; ATTEND Internal Medicine
PROC: 0W9B3ZX Drainage of Left Pleural Cavity, Percutaneous Approach, Diagnostic (ICD-10-PCS; principal; 2017-10-01)
PROC: BB4BZZZ Ultrasonography of Pleura (ICD-10-PCS; principal; 2017-10-01)
DX: J18.9 Pneumonia, unspecified organism (principal); J90 Pleural effusion, not elsewhere classified; Z86.711 Personal history of pulmonary embolism; R00.0 Tachycardia, unspecified; R09.02 Hypoxemia; R41.0 Disorientation, unspecified; R60.0 Localized edema; F11.20 Opioid dependence, uncomplicated; G89.29 Other chronic pain; K21.9 Gastro-esophageal reflux disease without esophagitis; F41.8 Other specified anxiety disorders; I50.9 Heart failure, unspecified; Z98.1 Arthrodesis status; Z88.6 Allergy status to analgesic agent
CPT/HCPCS: 82947-QW; 97162-GP; 97530-GP; J1170; J1650; J2543; J3370; Q9967